=== PATIENT | female | born 1945 | race Caucasian/White ===

== ENCOUNTER 2020-06-04 09:17 | Outpatient (REF) | payer MEDICARE, SELFPAY ==
[2020-06-04 22:02] LABS: TSH 1.12 uIU/mL (0.36-3.74)
== END 2020-06-04 09:37 ==
LOC: NCHCN 09:17
PROVIDERS: Visit Provider Nurse Practitioner Community Health
DX: E03.9 Hypothyroidism, unspecified (principal)
CPT/HCPCS: 84443

== ENCOUNTER 2022-04-15 15:02 | Outpatient (REF) | payer MEDICARE, SELFPAY ==
[2022-04-15 15:26] LABS: Abs Immature Grans 0.05 10^3/uL (0.0-0.06); Absolute Basophil Count 0.03 10^3/uL (0.0-0.2); Absolute Eosinophil Count 0.04 10^3/uL (0.0-0.7); Absolute Lymphocyte Count 1.04 10^3/uL (1.2-3.4); Absolute Neutrophil Count 7.86 10^3/uL (1.2-6.7); Basophils % 0.3; Eosinophils % 0.4; HCT 45.9 % (36.0-46.0); HGB 14.6 g/dL (11.2-15.7); Immature Grans % 0.5; Lymphocytes % 11.2; MCH 28.4 pg (27.0-33.0); MCHC 31.8 % (32.0-36.0); MCV 89 fL (80-95); MPV 14.3 fL (8.0-11.0); Monocytes % 3.2; Neutrophils % 84.4; RBC 5.14 10^6/uL (3.93-5.22); RDW 12.6 % (11.7-14.6); RDW-SD 41.4 fL; WBC 9.32 10^3/uL (4.4-10.8)
[2022-04-15 15:48] LABS: Hemoglobin A1C 6.9 % (<5.7)
[2022-04-15 16:19] LABS: ALT 21 U/L (14-59); AST 22 U/L (15-37); Albumin 4.1 g/dL (3.4-5.0); Alkaline Phosphatase 119 U/L (46-116); BUN 22 mg/dL (7-18); Bilirubin, Total 0.7 mg/dL (0.2-1.0); CREATININE 0.9 mg/dL (0.55-1.02); Calcium 8.4 mg/dL (8.5-10.1); Chloride 103 mmol/L (98-107); Glucose 162 mg/dL (74-106); Potassium 4.3 mmol/L (3.5-5.1); Sodium 139 mmol/L (136-145); TSH 1.43 uIU/mL (0.36-3.74); Total Protein 6.4 g/dL (6.4-8.2); Vitamin B12 139 pg/mL (193-986)
[2022-04-15 19:29] LABS: Diff Comment PLT Morph Reviewed; Platelet Count 35 10^3/uL (130-400); RBC Morphology Normal
== END 2022-04-15 15:03 | disposition home or self-care (01) ==
LOC: NCHCN 15:02
PROVIDERS: Visit Provider Registered Nurse
DX: E03.9 Hypothyroidism, unspecified (principal); E11.9 Type 2 diabetes mellitus without complications; R41.3 Other amnesia; D89.89 Other specified disorders involving the immune mechanism, not elsewhere classified; I10 Essential (primary) hypertension
CPT/HCPCS: 80053; 82043; 82570; 82607; 83036; 84443; 85025

== ENCOUNTER 2023-03-11 21:34 | Outpatient (REF) | payer MEDICARE, SELFPAY ==
--- OUTSIDE RECORDS SUMMARY | 2023-03-11 21:46 | XMS_ITS | CCD ---
Author Name Unknown Address [address] [place] [address] [id number] Organization Unknown Address [address] [place] [address] [id number] Care Team Providers Care Topographical Surveyor Name Role Phone EVANGELINA BAIRD Attending Physician [phone] Vital Signs Unknown or Not Available. Allergies Allergy Code Allergy Type Reaction Status No Known Drug Allergies 0 No known drug allergies Active Procedures Unknown or Not Available. History of Immunizations Unknown or Not Available. Problems Unknown or Not Available. Results Unknown or Not Available. Active Medications Medication Code Dose Units Frequency Route Modificatio n Start Date/Time Keflex 500MG Oral Capsule 804329 1 CAPSULE THREE TIMES A DAY ORAL 05/15/2022 14:27 Prescription Detail TAKE 1 CAPSULE ORAL THREE TIMES A DAY Levothyroxine 100MCG Oral Tablet 575624 100 MCG DAILY ORAL 07/18/2020 13:16 Prescription Detail TAKE 100 MCG ORAL DAILY Lisinopril 10MG Oral Tablet [id number] 10 MILLIGRAMS DAILY ORAL 020 13:16 Prescription Detail TAKE 10 MILLIGRAMS ORAL DAILY Medications Administered During Visit Unknown or Not Available. Encounters Encounter Diagnosis Diagnosis Code Start Date Other amnesia R413 05/25/2022 Social History Smoking Status Code Start Date End Date Never smoker [id number] Patient Decision Aids Unknown or Not Available. Discharge Instructions You were admitted to [facility] on 05/25/2022 14:38 with a principal diagnosis of Other amnesia You were discharged from [facility] on 05/25/2022 14:38 Should you have any questions prior to discharge, please contact a member of your healthcare team. If you have left the hospital and have any questions, please contact your primary care physician. Chief Complaint and Reason For Visit Chief Complaint Date of Onset ASYMPTOMATIC POSTMENOPAUSAL Function Status Unknown or Not Available. Plan of Care Unknown or Not Available. Referral/Transition of Care Unknown or Not Available.
--- OUTSIDE RECORDS SUMMARY | 2023-03-11 21:46 | XMS_ITS | CCD ---
Author Name Unknown Address [address] [place] [address] [id number] Organization Unknown Address [address] [place] [address] [id number] Care Team Providers Care Machine Operator Helper Name Role Phone MARGE ANTONIO Attending Physician [phone] DEVANTE MARCOS Er Physician 5 [phone] KALEE Feliciano Registered Nurse [phone] Vital Signs Vital Sign Value Unit Date/Time Recent/Initial ? BMI (Body Mass Index) 24.2 kg/m^2 05/15/2022 14: 22 Initial VS Weight Measured 141 lbs 05/15/2022 14:22 Ini tial VS Height 64 in 05/15/2022 14:22 Initial VS BSA (Body Surface Area) 1.7 m^2 05/15/2022 1 4:22 Initial VS BP Systolic 162 mmHg 05/15/2022 14:22 Initial VS BP Diastolic 86 mmHg 05/15/2022 14:22 Initia l VS Respiratory Rate 16 bpm 05/15/2022 14:22 In itial VS Heart Rate 72 bpm 05/15/2022 14:22 Initial VS O2 % BldC Oximetry 98 % 05/15/2022 14:22 Initial VS Body Temperature 36.8 degrees 05/15/2022 14:22 In itial VS BP Systolic 149 mmHg 05/15/2022 14:35 Most Re cent VS BP Diastolic 86 mmHg 05/15/2022 14:35 Most R ecent VS Respiratory Rate 18 bpm 05/15/2022 14:[address] Recent VS Heart Rate 63 bpm 05/15/2022 14:35 Most Rec ent VS O2 % BldC Oximetry 98 % 05/15/2022 14:35 Most Recent VS Body Temperature 36.1 degrees 05/15/2022 14:[address] Recent VS Allergies Allergy Code Allergy Type Reaction Status No Known Drug Allergies 0 No known drug allergies Active Procedures Unknown or Not Available. History of Immunizations Unknown or Not Available. Problems Unknown or Not Available. Results Unknown or Not Available. Active Medications Unknown or Not Available. Medications Administered During Visit Unknown or Not Available. Encounters Encounter Diagnosis Diagnosis Code Start Date Cellulitis of right lower limb [id number] 05/15/2022 Social History Smoking Status Code Start Date End Date Never smoker [id number] Patient Decision Aids Unknown or Not Available. Discharge Instructions You were admitted to [facility] on 05/15/2022 13:27 with a principal diagnosis of Cellulitis of right lower limb You were discharged from [facility] on 05/15/2022 14:54 Should you have any questions prior to discharge, please contact a member of your healthcare team. If you have left the hospital and have any questions, please contact your primary care physician. Chief Complaint and Reason For Visit Chief Complaint Date of Onset RIGHT CALF SORE POSSIBLE BITE 05/15/2022 Function Status Unknown or Not Available. Plan of Care Unknown or Not Available. Referral/Transition of Care Unknown or Not Available.
--- OUTSIDE RECORDS SUMMARY | 2023-03-11 21:46 | XMS_ITS | CCD ---
Author Name Unknown Address [address] [place] [address] [id number] Organization Unknown Address [address] [place] [address] [id number] Care Team Providers Care Paster Supervisor Name Role Phone ALEN BALDWIN, JUDY Russ Attending Physician [phone] SUSY MASON Er Physician 1 0 Vital Signs Unknown or Not Available. Allergies Allergy Code Allergy Type Reaction Status No Known Drug Allergies 0 No known drug allergies Active Procedures Unknown or Not Available. History of Immunizations Unknown or Not Available. Problems Unknown or Not Available. Results Unknown or Not Available. Active Medications Medication Code Dose Units Frequency Route Modificatio n Start Date/Time Keflex 500MG Oral Capsule 818184 1 CAPSULE THREE TIMES A DAY ORAL 05/15/2022 14:27 Prescription Detail TAKE 1 CAPSULE ORAL THREE TIMES A DAY Levothyroxine 100MCG Oral Tablet [id number] 100 MCG DAILY ORAL 07/18/2020 13:16 Prescription Detail TAKE 100 MCG ORAL DAILY Lisinopril 10MG Oral Tablet 162841 10 MILLIGRAMS DAILY ORAL 020 13:16 Prescription Detail TAKE 10 MILLIGRAMS ORAL DAILY Medications Administered During Visit Unknown or Not Available. Encounters Encounter Diagnosis Diagnosis Code Start Date Insect bite (nonvenomous), r ight lower leg, initial encounter [id number] 07/24/2021 Social History Smoking Status Code Start Date End Date Never smoker [id number] Patient Decision Aids Unknown or Not Available. Discharge Instructions You were admitted to [facility] on 07/24/2021 19:50 with a principal diagnosis of Insect bite (nonvenomous), right lower leg, initial encounter You were discharged from [facility] on 07/24/2021 21:00 Should you have any questions prior to discharge, please contact a member of your healthcare team. If you have left the hospital and have any questions, please contact your primary care physician. Chief Complaint and Reason For Visit Chief Complaint Date of Onset RIGHT ANKLE BITE Function Status Unknown or Not Available. Plan of Care Unknown or Not Available. Referral/Transition of Care Unknown or Not Available.
[2023-03-11 22:28] LABS: Vitamin D 25 Total 34.8 ng/mL (30-100)
[2023-03-11 22:30] LABS: Magnesium 2.1 mg/dL (1.8-2.4); TSH (W/Ref FT4) 0.98 uIU/mL (0.36-3.74); Vitamin B12 97 pg/mL (193-986)
[2023-03-11 22:34] LABS: Folate > 20.0 ng/mL (8.6-20.0)
== END 2023-03-11 21:35 | disposition home or self-care (01) ==
LOC: NCHCN 21:34
PROVIDERS: Visit Provider Family Medicine
DX: E03.9 Hypothyroidism, unspecified (principal); I10 Essential (primary) hypertension; E11.9 Type 2 diabetes mellitus without complications; F32.9 Major depressive disorder, single episode, unspecified; Z79.899 Other long term (current) drug therapy
CPT/HCPCS: 82306; 82607; 82746; 83735; 84443

== ENCOUNTER 2023-07-26 10:28 | Outpatient (REF) | payer MEDICARE, SELFPAY ==
[2023-07-26 15:54] LABS: Anion Gap 6.2 mmol/L (3-11); BUN 18 mg/dL (7-18); CO2 29.8 mmol/L (21.0-32.0); CREATININE 0.9 mg/dL (0.55-1.02); Calcium 8.7 mg/dL (8.5-10.1); Chloride 103 mmol/L (98-107); Estimated GFR 65.03 (mL/min/1.73m2); Glucose 186 mg/dL (74-106); Potassium 3.9 mmol/L (3.5-5.1); Sodium 139 mmol/L (136-145)
[2023-07-26 18:22] LABS: COMMENT (LAB VIEW ONLY) 105.18 mg/dL; Microalb ug/mg Crea 6.4 ug/mg Cr
== END 2023-07-26 10:29 | disposition home or self-care (01) ==
LOC: NCHCN 10:28
PROVIDERS: PCP Family Medicine; Visit Provider Family Medicine
DX: E11.9 Type 2 diabetes mellitus without complications (principal); I10 Essential (primary) hypertension
CPT/HCPCS: 80048; 82043; 82570

== ENCOUNTER 2024-04-12 12:47 | Outpatient (REF) | payer MEDICARE, SELFPAY ==
[2024-04-12 15:20] LABS: Anion Gap 10.5 mmol/L (3-11); BUN 17 mg/dL (7-18); CO2 26.5 mmol/L (21.0-32.0); CREATININE 0.9 mg/dL (0.55-1.02); Calcium 9.2 mg/dL (8.5-10.1); Chloride 104 mmol/L (98-107); Estimated GFR 64.63 (mL/min/1.73m2); Glucose 134 mg/dL (74-106); Potassium 4.2 mmol/L (3.5-5.1); Sodium 141 mmol/L (136-145)
[2024-04-12 15:26] LABS: Hemoglobin A1C 6.3 % (<5.7)
== END 2024-04-12 12:48 | disposition home or self-care (01) ==
LOC: NCHCN 12:47
PROVIDERS: PCP Family Medicine; Visit Provider Family Medicine
DX: E11.9 Type 2 diabetes mellitus without complications (principal); E03.9 Hypothyroidism, unspecified
CPT/HCPCS: 80048; 83036; 84443

== ENCOUNTER 2024-05-22 15:01 | Outpatient (REF) | payer MEDICARE, SELFPAY ==
[2024-05-22 15:29] LABS: Abs Immature Grans 0.06 10^3/uL (0.0-0.06); Absolute Basophil Count 0.03 10^3/uL (0.0-0.2); Absolute Eosinophil Count 0.05 10^3/uL (0.0-0.7); Absolute Monocyte Count 0.24 10^3/uL (0.1-0.8); Absolute Neutrophil Count 7.45 10^3/uL (1.2-6.7); Basophils % 0.3 %; Eosinophils % 0.6 %; HCT 43.9 % (36.0-46.0); Immature Grans % 0.7 %; Lymphocytes % 9.3 %; MCH 27.6 pg (27.0-33.0); MCHC 31.9 % (32.0-36.0); MCV 87 fL (80-95); Monocytes % 2.8 %; Neutrophils % 86.3 %; RBC 5.07 10^6/uL (3.93-5.22); RDW 12.4 % (11.7-14.6); RDW-SD 39.3 fL; WBC 8.63 10^3/uL (4.4-10.8)
[2024-05-22 16:10] LABS: Platelet Count 44 10^3/uL (130-400)
== END 2024-05-22 15:02 | disposition home or self-care (01) ==
LOC: LBN 15:01
PROVIDERS: PCP Family Medicine; Visit Provider Nurse Practitioner
DX: D69.3 Immune thrombocytopenic purpura (principal); D47.2 Monoclonal gammopathy
CPT/HCPCS: 85025

== ENCOUNTER 2024-07-26 19:18 | Outpatient (REF) | payer MEDICARE, SELFPAY ==
[2024-07-26 17:24] LABS: Abs Immature Grans 0.12 10^3/uL (0.0-0.06); Absolute Basophil Count 0.03 10^3/uL (0.0-0.2); Absolute Lymphocyte Count 0.67 10^3/uL (1.2-3.4); Absolute Neutrophil Count 7.66 10^3/uL (1.2-6.7); Basophils % 0.3 %; HCT 40.9 % (36.0-46.0); HGB 13.1 g/dL (11.2-15.7); Immature Grans % 1.4 %; Lymphocytes % 7.8 %; MCH 27.6 pg (27.0-33.0); MCV 86 fL (80-95); MPV 11.3 fL (8.0-11.0); Monocytes % 1.2 %; Neutrophils % 89.3 %; RBC 4.75 10^6/uL (3.93-5.22); RDW 14.2 % (11.7-14.6); RDW-SD 45.1 fL; WBC 8.58 10^3/uL (4.4-10.8)
[2024-07-26 17:58] LABS: Diff Comment PLT Morph Reviewed; Platelet Count 76 10^3/uL (130-400); RBC Morphology Normal
== END 2024-07-26 19:19 | disposition home or self-care (01) ==
LOC: LBN 19:18
PROVIDERS: PCP Family Medicine; Visit Provider Nurse Practitioner
DX: D69.3 Immune thrombocytopenic purpura (principal)
CPT/HCPCS: 85025

== ENCOUNTER 2024-08-01 02:41 | Outpatient (CLI) | payer MEDICARE, SELFPAY ==
[2024-08-01 10:06] LABS: Abs Immature Grans 0.17 10^3/uL (0.0-0.06); Absolute Basophil Count 0.06 10^3/uL (0.0-0.2); Absolute Eosinophil Count 0.01 10^3/uL (0.0-0.7); Absolute Lymphocyte Count 1.99 10^3/uL (1.2-3.4); Absolute Monocyte Count 0.54 10^3/uL (0.1-0.8); Absolute Neutrophil Count 6.69 10^3/uL (1.2-6.7); Basophils % 0.6 %; Eosinophils % 0.1 %; HGB 13.4 g/dL (11.2-15.7); Immature Grans % 1.8 %; MCH 27.2 pg (27.0-33.0); MCHC 31.9 % (32.0-36.0); MCV 85 fL (80-95); MPV 10.4 fL (8.0-11.0); Monocytes % 5.7 %; Neutrophils % 70.8 %; RBC 4.92 10^6/uL (3.93-5.22); RDW 14.3 % (11.7-14.6); RDW-SD 44.5 fL; WBC 9.46 10^3/uL (4.4-10.8)
[2024-08-01 10:17] LABS: Platelet Count 76 10^3/uL (130-400)
== END 2024-08-01 02:42 | disposition home or self-care (01) ==
LOC: LBO 02:41
PROVIDERS: PCP Family Medicine; Visit Provider Nurse Practitioner
DX: D69.3 Immune thrombocytopenic purpura (principal)
CPT/HCPCS: 36415; 85025

== ENCOUNTER 2024-08-08 03:32 | Outpatient (CLI) | payer MEDICARE, SELFPAY ==
[2024-08-08 10:07] LABS: Abs Immature Grans 0.12 10^3/uL (0.0-0.06); Absolute Basophil Count 0.05 10^3/uL (0.0-0.2); Absolute Eosinophil Count 0.03 10^3/uL (0.0-0.7); Absolute Lymphocyte Count 1.93 10^3/uL (1.2-3.4); Absolute Monocyte Count 0.58 10^3/uL (0.1-0.8); Absolute Neutrophil Count 6.56 10^3/uL (1.2-6.7); Basophils % 0.5 %; Eosinophils % 0.3 %; HCT 46.3 % (36.0-46.0); HGB 14.7 g/dL (11.2-15.7); Immature Grans % 1.3 %; Lymphocytes % 20.8 %; MCH 27.2 pg (27.0-33.0); MCHC 31.7 % (32.0-36.0); MCV 86 fL (80-95); MPV 9.9 fL (8.0-11.0); Monocytes % 6.3 %; Neutrophils % 70.8 %; RDW 14.6 % (11.7-14.6); RDW-SD 45.6 fL; WBC 9.27 10^3/uL (4.4-10.8)
[2024-08-08 10:36] LABS: Diff Comment Diff Reviewed; Platelet Count 72 10^3/uL (130-400); RBC Morphology Normal
== END 2024-08-08 03:33 | disposition home or self-care (01) ==
LOC: LBO 03:32
PROVIDERS: PCP Family Medicine; Visit Provider Nurse Practitioner
DX: D69.3 Immune thrombocytopenic purpura (principal)
CPT/HCPCS: 36415; 85025

== ENCOUNTER 2024-08-15 02:51 | Outpatient (CLI) | payer MEDICARE, SELFPAY ==
[2024-08-15 10:09] LABS: Abs Immature Grans 0.09 10^3/uL (0.0-0.06); Absolute Basophil Count 0.04 10^3/uL (0.0-0.2); Absolute Eosinophil Count 0.03 10^3/uL (0.0-0.7); Absolute Lymphocyte Count 2.37 10^3/uL (1.2-3.4); Absolute Neutrophil Count 5.22 10^3/uL (1.2-6.7); Basophils % 0.5 %; Eosinophils % 0.4 %; HGB 13.6 g/dL (11.2-15.7); Immature Grans % 1.1 %; Lymphocytes % 28.7 %; MCH 27.9 pg (27.0-33.0); MCHC 32.4 % (32.0-36.0); MCV 86 fL (80-95); MPV 11.3 fL (8.0-11.0); Monocytes % 6.1 %; Neutrophils % 63.2 %; RBC 4.88 10^6/uL (3.93-5.22); RDW 14.7 % (11.7-14.6); RDW-SD 46.3 fL; WBC 8.25 10^3/uL (4.4-10.8)
[2024-08-15 10:20] LABS: Platelet Count 66 10^3/uL (130-400)
== END 2024-08-15 02:52 | disposition home or self-care (01) ==
LOC: LBO 02:51
PROVIDERS: PCP Family Medicine; Visit Provider Nurse Practitioner
DX: D69.3 Immune thrombocytopenic purpura (principal)
CPT/HCPCS: 36415; 85025

== ENCOUNTER 2024-08-22 02:25 | Outpatient (CLI) | payer MEDICARE, SELFPAY ==
[2024-08-22 09:54] LABS: Abs Immature Grans 0.04 10^3/uL (0.0-0.06); Absolute Basophil Count 0.03 10^3/uL (0.0-0.2); Absolute Eosinophil Count 0.03 10^3/uL (0.0-0.7); Absolute Lymphocyte Count 1.92 10^3/uL (1.2-3.4); Absolute Monocyte Count 0.42 10^3/uL (0.1-0.8); Absolute Neutrophil Count 4.57 10^3/uL (1.2-6.7); Basophils % 0.4 %; Eosinophils % 0.4 %; HCT 41.5 % (36.0-46.0); HGB 13.2 g/dL (11.2-15.7); Immature Grans % 0.6 %; Lymphocytes % 27.4 %; MCH 27.4 pg (27.0-33.0); MCHC 31.8 % (32.0-36.0); MCV 86 fL (80-95); MPV 11.5 fL (8.0-11.0); Neutrophils % 65.2 %; RBC 4.81 10^6/uL (3.93-5.22); RDW 14.7 % (11.7-14.6); RDW-SD 46.7 fL; WBC 7.01 10^3/uL (4.4-10.8)
[2024-08-22 10:10] LABS: Platelet Count 50 10^3/uL (130-400)
== END 2024-08-22 02:26 | disposition home or self-care (01) ==
LOC: LBO 02:25
PROVIDERS: PCP Family Medicine; Visit Provider Nurse Practitioner
DX: D69.3 Immune thrombocytopenic purpura (principal)
CPT/HCPCS: 36415; 85025

== ENCOUNTER 2024-08-23 15:39 | Outpatient (REF) | payer MEDICARE, SELFPAY ==
[2024-08-23 15:55] LABS: Anion Gap 5.7 mmol/L (3-11); BUN 18 mg/dL (7-18); CO2 28.3 mmol/L (21.0-32.0); CREATININE 0.8 mg/dL (0.55-1.02); Calcium 8.2 mg/dL (8.5-10.1); Chloride 105 mmol/L (98-107); Estimated GFR 74.44 (mL/min/1.73m2); Glucose 152 mg/dL (74-106); Potassium 3.7 mmol/L (3.5-5.1); Sodium 139 mmol/L (136-145)
[2024-08-23 16:24] LABS: TSH (W/Ref FT4) 3.11 uIU/mL (0.36-3.74)
== END 2024-08-23 15:40 | disposition home or self-care (01) ==
LOC: NCHCN 15:39
PROVIDERS: PCP Family Medicine; Visit Provider Family Medicine
DX: E03.9 Hypothyroidism, unspecified (principal); D69.3 Immune thrombocytopenic purpura
CPT/HCPCS: 80048; 84443

== ENCOUNTER 2024-08-29 02:17 | Outpatient (CLI) | payer MEDICARE, SELFPAY ==
[2024-08-29 10:01] LABS: Abs Immature Grans 0.07 10^3/uL (0.0-0.06); Absolute Basophil Count 0.03 10^3/uL (0.0-0.2); Absolute Eosinophil Count 0.04 10^3/uL (0.0-0.7); Absolute Lymphocyte Count 1.79 10^3/uL (1.2-3.4); Absolute Monocyte Count 0.61 10^3/uL (0.1-0.8); Absolute Neutrophil Count 4.44 10^3/uL (1.2-6.7); Basophils % 0.4 %; Eosinophils % 0.6 %; HCT 42.4 % (36.0-46.0); HGB 13.5 g/dL (11.2-15.7); Lymphocytes % 25.6 %; MCH 27.6 pg (27.0-33.0); MCHC 31.8 % (32.0-36.0); MCV 87 fL (80-95); MPV 9.8 fL (8.0-11.0); Monocytes % 8.7 %; Neutrophils % 63.7 %; RBC 4.89 10^6/uL (3.93-5.22); RDW 14.9 % (11.7-14.6); RDW-SD 47.9 fL; WBC 6.98 10^3/uL (4.4-10.8)
[2024-08-29 10:14] LABS: Diff Comment PLT Morph Reviewed; Platelet Count 46 10^3/uL (130-400); RBC Morphology Normal
== END 2024-08-29 02:18 | disposition home or self-care (01) ==
LOC: LBO 02:18
PROVIDERS: PCP Family Medicine; Visit Provider Nurse Practitioner
DX: D69.3 Immune thrombocytopenic purpura (principal)
CPT/HCPCS: 36415; 85025

== ENCOUNTER 2024-09-10 18:33 | Observation (INO) | payer MEDICARE, SELFPAY ==
[2024-09-10 18:37] VITALS: BP 155/88; PULSE 88; RESP 15; TEMP 36.8; O2SAT 97
[2024-09-10 20:34] LABS: Bilirubin Small (Negative); Blood Negative (Negative); Clarity Clear (Clear); Glucose 500 mg/dL (Negative); Ketones Trace mg/dL (Negative); Leukocyte Esterase Negative (Negative); Nitrite Negative (Negative); Specific Gravity >= 1.030 (1.005-1.025); pH 5.5 (5-8)
[2024-09-10 20:36] LABS: Abs Immature Grans 0.18 10^3/uL (0.0-0.06); Absolute Basophil Count 0.04 10^3/uL (0.0-0.2); Absolute Eosinophil Count 0.01 10^3/uL (0.0-0.7); Absolute Monocyte Count 0.46 10^3/uL (0.1-0.8); Absolute Neutrophil Count 6.71 10^3/uL (1.2-6.7); Basophils % 0.4 %; Eosinophils % 0.1 %; HCT 40.1 % (36.0-46.0); HGB 12.9 g/dL (11.2-15.7); Lymphocytes % 16.9 %; MCH 27.9 pg (27.0-33.0); MCHC 32.2 % (32.0-36.0); MCV 87 fL (80-95); MPV 11.1 fL (8.0-11.0); Monocytes % 5.2 %; Neutrophils % 75.4 %; RBC 4.62 10^6/uL (3.93-5.22); RDW 14.6 % (11.7-14.6); RDW-SD 46.5 fL
[2024-09-10 20:46] LABS: *AMPHETAMINES SCREEN URINE Negative (Negative); *BARBITURATES SCREEN URINE Negative (Negative); *BENZODIAZEPINES SCREEN URINE Negative (Negative); Cannabinoids THC Negative (Negative); Cocaine Screen,Urine Negative (Negative); METHADONE URINE SCREEN Negative (Negative); OPIATES URINE SCREEN Negative (Negative); Tricyclic Antidepressants Positive (Negative)
--- NOTE | 2024-09-10 20:47 | W.ED.GENAD ---
Discharge Plan Discharge Details Chief Complaint: PsychEval Primary Care Provider: Coral Borrego ED Provider: Rehana Matamoros Home Meds and New Rx's Prescriptions: No Action cyanocobalamin (vitamin B-12) 1,000 mcg capsule 1,000 mcg PO DAILY doxycycline hyclate 100 mg capsule 100 mg PO BID escitalopram oxalate 10 mg tablet 10 mg PO DAILY escitalopram oxalate 5 mg tablet 5 mg PO DAILY levothyroxine 100 mcg capsule 100 mcg PO DAILY lisinopril 10 mg tablet 10 mg PO DAILY metformin 500 mg tablet 500 mg PO BID metformin 500 mg tablet extended release 24 hr 500 mg PO DAILY acetylcysteine [NAC] 600 mg capsule 600 mg PO BID prednisolone acetate 1 % drops,suspension 1 drp ophthalmic (eye) QID prednisone 10 mg tablet 10 mg PO DAILY prednisone 2.5 mg tablet 2.5 mg PO DAILY quetiapine 25 mg tablet 25 mg PO BID multivitamin,tx-minerals Tablet 1 tab PO DAILY cholecalciferol (vitamin D3) 10 mcg (400 unit) capsule 10 mcg PO DAILY HPI General Mode of arrival: ambulatory. Date/Time Provider Initiated Documentation: 09/10/24 18:54. Limitations to Documentation: no limitations. Information obtained by: patient, family and old records reviewed. HPI Narrative: HPI: This is a an 79-year-old female patient with a past medical history significant for dementia, diabetes, and hypothyroidism presenting for evaluation for mood disturbance. History is primarily obtained from the patient's family members which include a and son at bedside and a daughter, who is the DURABLE POWER OF ADMINISTRATIVE SUPPORT ASSISTANT, via phone. The patient has a history of sundowning, resides at home with the and became quite agitated this evening, with lots of yelling and potential throwing of dishes. The family is concerned that the home is currently an unsafe environment for both the patient and her . The patient had an evaluation at [facility] 1 week ago for suicidal ideation, patient is reported to have left a note stating that she wanted to . The patient states that she feels very frustrated because she is not the same person that she used to be, and endorses a feeling of hopelessness given her situation. Today she is not endorsing any active suicidal ideation and has made no attempts to harm herself prior to arrival at our facility. The patient reports that she is otherwise feeling well, with no reported recent falls, illness, or injuries. The family has been attempting to touch the patient and with outpatient resources, but are lacking clearance and referrals which required them to present to the emergency department today for evaluation. Exam: Gen: Awake and alert, in no apparent distress HEENT: Non-icteric sclera, PERRL Neck: Supple Lungs: No apparent respiratory distress, normal respiratory effort. CV: Appears well perfused, strong distal pulses Abdomen: Non-distended MSK: Moves 4 extremities without apparent limitation in ROM Skin: Visualized skin without rashes, cyanosis. Neuro: Normal Gait, no obvious focal deficits or facial asymmetry. Cranial nerves II through XII intact and symmetrical bilaterally, 5 out of 5 strength. Speaks in full, clear sentences. Psych: Appropriate for situation, currently calm, cooperative, able to participate in evaluation and follow simple commands MDM: This is an 79-year-old female patient presenting for evaluation of mood disturbance. My differential includes but is not limited to primary psychiatric disturbance, certainly considered sequelae of dementia, considered medical abnormalities including hypothyroidism, infection including urinary tract infection, anemia, metabolic derangement, kidney injury, liver disease. The patient has not had any reported ingestions or attempts at overdose (patient has received to 25 mg Seroquel's at home prior to arrival over the course of the day), and has not sustained any trauma to suggest intracranial hemorrhage or other injury. Given that the patient cannot be cleared without a medical clearance examination due to her age and her history of diabetes, we will proceed with laboratory studies to include CBC, CMP, UA, TSH, and urine drug screen. ED Course: I reviewed the patient's laboratory studies, which reveal no leukocytosis, or anemia. She does have a baseline thrombocytopenia which is actually improved from her baseline. No metabolic or electrolyte derangements, slight elevation in her BUN without associated elevation in creatinine, no liver dysfunction. UA is noninfectious, and her UDS is positive only for tricyclics. I note that she is on a prednisone taper, which could certainly be contributing to her symptoms. After medical clearance the patient was moved to zone B, and I signed out care of the patient to the oncoming provider prior to final disposition and evaluation by social work. I did write for her home meds, and she received a dose of Seroquel 25 which is at bedtime medicine for her at home here in the emergency department. She did not require chemical or physical restraint. Remained hemodynamically stable while under my care. Ceci Griffin MD Related Data Home Medications ?Medication ?Instructions ?Recorded ?Confirmed acetylcysteine 600 mg capsule (NAC) 600 mg PO BID 04/30/24 cholecalciferol (vitamin D3) 10 10 mcg PO DAILY 04/30/24 mcg (400 unit) capsule cyanocobalamin (vitamin B-12) 1,000 mcg PO DAILY 04/30/24 1,000 mcg capsule doxycycline hyclate 100 mg capsule 100 mg PO BID 04/30/24 escitalopram oxalate 10 mg tablet 10 mg PO DAILY 04/30/24 escitalopram oxalate 5 mg tablet 5 mg PO DAILY 04/30/24 levothyroxine 100 mcg capsule 100 mcg PO DAILY 04/30/24 lisinopril 10 mg tablet 10 mg PO DAILY 04/30/24 metformin 500 mg tablet 500 mg PO BID 04/30/24 metformin 500 mg tablet,extended 500 mg PO DAILY 04/30/24 release 24 hr multivitamin,tx-minerals 1 tab PO DAILY 04/30/24 prednisolone acetate 1 % eye 1 drp ophthalmic (eye) QID 04/30/24 drops,suspension prednisone 10 mg tablet 10 mg PO DAILY 04/30/24 prednisone 2.5 mg tablet 2.5 mg PO DAILY 04/30/24 quetiapine 25 mg tablet 25 mg PO BID 04/30/24 Allergies Allergy/AdvReac Type Severity Reaction Status Date / Time No Known Allergies Allergy Verified 04/30/24 09:32 General Stated Complaint: PsychEval LIDYA: 2 Course Vital Signs Vital signs: Vital Signs Temperature 36.8 C 09/10/24 18:37 Pulse 88 09/10/24 18:37 Respiratory Rate 15 09/10/24 18:37 Blood Pressure 155/88 H 09/10/24 18:37 Pulse Oximetry 97 09/10/24 18:37 Temperature 36.8 C 09/10/24 18:37 Pulse 88 09/10/24 18:37 Respiratory Rate 15 09/10/24 18:37 Respiratory Effort Normal 09/10/24 20:30 Blood Pressure 155/88 H 09/10/24 18:37 Blood Pressure Position Sitting 09/10/24 18:37 Pulse Oximetry 97 09/10/24 18:37 Oxygen Delivery Method Room Air 09/10/24 18:37 Oxygen Flow Rate 0 09/10/24 18:37 Lab/Test Results Lab/Test Results: Laboratory Tests Range/Units 09/10/24 20:22 Urine Color (Yellow) Yellow Urine Clarity (Clear) Clear Urine pH (5-8) 5.5 Ur Specific He[place] (1.005-1.025) >= 1.030 H Urine Protein (Neg-Trace) mg/dL Trace Urine Ketones (Negative) mg/dL Trace H Urine Blood (Negative) Negative Urine Nitrite (Negative) Negative Urine Bilirubin (Negative) Small H Urine Urobilinogen (Up to 0.2) mg/dL 1.0 H Ur Leukocyte Esterase (Negative) Negative Urine Glucose (Negative) mg/dL 500 H Urine Opiates Screen (Negative) Negative Urine Methadone Screen (Negative) Negative Ur Barbiturates Screen (Negative) Negative Ur Tricyclics Screen (Negative) Positive A Ur Amphetamines Screen (Negative) Negative U Benzodiazepines Scrn (Negative) Negative Urine Cocaine Screen (Negative) Negative Ur THC Screen (Negative) Negative Medical Decision Making Quality:SDOH Health Related Social Needs: No Data to Display [facility] Medical History (Updated 04/20/24 @ 08:10 by Liya Dempsey) Dementia Depressed mood Hx of small bowel obstruction Skin macule Acute skin disorder Suicidal thoughts Hx of adenomatous polyp of colon Retrograde amnesia Osteopenia Dysplasia of cervix GERD (gastroesophageal reflux disease) Essential hypertension Insomnia Anxiety Thrombocytopenia Immunosuppression Monoclonal gammopathy of unknown significance Type 2 diabetes mellitus Hypothyroidism Surgical History (Updated 04/20/24 @ 08:12 by Liya Dempsey) H/O local excision of skin lesion Family History (Updated 04/20/24 @ 08:11 by Liya Dempsey) Mother Diabetes LATE ONSET Father Prostate cancer Social History (Updated 04/20/24 @ 08:11 by Liya Dempsey) Smoking/Tobacco Use Status: Never Smoking risk assessment performed?: Yes Sign Out Sign Out Data: Sign Out Comment: 79-year-old female patient with history of dementia brought in for increasing agitation at home, recent evaluation for suicidal ideation a week ago, concern for safety in the home/caregiver fatigue. Medically cleared, wrote for her home Seroquel and melatonin, awaiting [facility] eval and final dispo Last updated by Ceci Griffin MD at 09/10/24 23:31
[2024-09-10 20:50] LABS: Platelet Count 70 10^3/uL (130-400)
[2024-09-10 21:02] LABS: ALT 15 U/L (14-59); AST 12 U/L (15-37); Albumin 3.5 g/dL (3.4-5.0); Alkaline Phosphatase 95 U/L (46-116); Anion Gap 6.1 mmol/L (3-11); BUN 26 mg/dL (7-18); Bilirubin, Total 0.41 mg/dL (0.2-1.0); CO2 30.9 mmol/L (21.0-32.0); CREATININE 0.9 mg/dL (0.55-1.02); Calcium 8.8 mg/dL (8.5-10.1); Chloride 105 mmol/L (98-107); Estimated GFR 64.63 (mL/min/1.73m2); Glucose 180 mg/dL (74-106); Potassium 4.1 mmol/L (3.5-5.1); Sodium 142 mmol/L (136-145); Total Protein 6.5 g/dL (6.4-8.2)
--- NOTE | 2024-09-10 23:12 | NUR.NOTE ---
Nursing Note: pT family contacts: Edward Ada- son- [phone] Harvey Kaur- daughter- [phone] Adin Ada- - [phone] Cassandra Sanchez- family friend- [phone]
--- NOTE | 2024-09-10 23:38 | ED.PROG_ITS ---
Date of service: 09/10/24 Time of Service: 23:38 Medical Decision Making This patient was signed out to me. Please see previous notes for H&P and initial eval. In brief, 79yo F with dementia presenting with mood disturbance and family reports of suicidal statements, medically cleared (thrombcytopenia at baseline), voluntary, concerns expressed for safety in the home and caregiver fatigue. Awaiting eval by [facility]. [facility] evaluated patient; plan for re-eval in the morning. Overnight no acute events. Will be signed out to oncoming physician, plan remains as above. Quality:[facility] Health Related Social Needs: No Data to Display Sign Out Sign Out Data: Sign Out Comment: 79-year-old female patient with history of dementia brought in for increasing agitation at home, recent evaluation for suicidal ideation a week ago, concern for safety in the home/caregiver fatigue. Medically cleared, wrote for her home Seroquel and melatonin, awaiting [facility] eval and final dispo Last updated by Ceci Griffin MD at 09/10/24 23:31 Discharge Plan Discharge Details Chief Complaint: PsychEval Primary Care Provider: Coral Borrego ED Provider: Rehana Matamoros Home Meds and New Rx's Prescriptions: No Action cyanocobalamin (vitamin B-12) 1,000 mcg capsule 1,000 mcg PO DAILY doxycycline hyclate 100 mg capsule 100 mg PO BID escitalopram oxalate 10 mg tablet 10 mg PO DAILY escitalopram oxalate 5 mg tablet 5 mg PO DAILY levothyroxine 100 mcg capsule 100 mcg PO DAILY lisinopril 10 mg tablet 10 mg PO DAILY metformin 500 mg tablet 500 mg PO BID metformin 500 mg tablet extended release 24 hr 500 mg PO DAILY acetylcysteine [NAC] 600 mg capsule 600 mg PO BID prednisolone acetate 1 % drops,suspension 1 drp ophthalmic (eye) QID prednisone 10 mg tablet 10 mg PO DAILY prednisone 2.5 mg tablet 2.5 mg PO DAILY quetiapine 25 mg tablet 25 mg PO BID multivitamin,tx-minerals Tablet 1 tab PO DAILY cholecalciferol (vitamin D3) 10 mcg (400 unit) capsule 10 mcg PO DAILY
[2024-09-11] MEDS: QUEtiapine 25 MG TAB PO ×4 (00:42→19:22)
[2024-09-11 07:57] VITALS: BP 195/100; PULSE 80; TEMP 36.6; O2SAT 95
--- NOTE | 2024-09-11 07:58 | W.EDPROG ---
Date of service: 09/11/24 Time of Service: 07:58 Medical Decision Making I received signout on this 79-year-old female in the emergency department voluntarily in the setting of reported suicidal thoughts in the past 48 hours. Patient reportedly has a history of dementia and CVA. Will ensure that her med reconciliation is up-to-date and plan on consulting with psychiatry given new onset symptoms. 12:20 PM I spoke with Dr. Zhao from psychiatry who evaluated the patient. He did not feel that the patient represented an acute risk to herself. He recommended consideration of hospitalization versus placement. Will reach out to care management. 1 PM I spoke with Linda Nevarez from [facility]. She requested a physical therapy consult as patient reportedly had had some balance issues. I also ordered a CT head given recent subdural hemorrhage. Linda will reach out to the patient's family. 2:15 PM I completed a repeat CT scan on this patient. She was found to have a right subdural hematoma which reportedly appeared subacute however there were some concerning areas of hyperdensity more consistent with recent hemorrhage. Patient was also found to have a small left frontal subdural hematoma. Will push images to [facility] and consult neurosurgery. 3:24 PM Patient was recently seen at [facility] for subdural. There was a delay in contacting the transfer center at [facility] as their phone number was down. I reached out to [facility] to have the images pushed and for them to assess for chronicity of her subdural. 3:40 PM I spoke with Linda Nevarez from [facility]. She reported that patient would not qualify for short-term rehab given that she required 1 person assist with physical therapy. 4:50 PM [address] Dr. Rendon from neurosurgery at [facility]. He noted that there was a slight change in the patient's CT scan but that he did not feel that she required acute neurosurgical intervention. I reordered her home medications. Will plan on repeating an interval scan in 6 hours. Will reach out to neurosurgery at [facility] if patient has any significant changes on her scan. Will also repeat scan sooner if patient has any clinical status change. Will sign patient out to Dr. Santana Quality:[facility] Health Related Social Needs: No Data to Display Sign Out Sign Out Data: Sign Out Comment: 79-year-old female patient with history of dementia brought in for increasing agitation at home, recent evaluation for suicidal ideation a week ago, concern for safety in the home/caregiver fatigue. Medically cleared, wrote for her home Seroquel and melatonin, awaiting [facility] eval and final dispo Last updated by Ceci Griffin MD at 09/10/24 23:31 Sign Out Comment: Hx dementia, mood changes/agitation at home and suicidal statements to family. Medically cleared. Pending [facility] eval. Last updated by Rehana Matamoros MD at 09/11/24 07:44 Discharge Plan Discharge Details Chief Complaint: PsychEval Primary Care Provider: Coral Borrego ED Provider: Jimmy Travis Home Meds and New Rx's Prescriptions: No Action cyanocobalamin (vitamin B-12) 1,000 mcg capsule 1,000 mcg PO DAILY escitalopram oxalate 5 mg tablet 5 mg PO DAILY prednisone 10 mg tablet 15 mg PO DAILY quetiapine 25 mg tablet 25 mg PO BID Patient Comments: Per daughter, pts giving it to her when he feels it is necessary- family wants to determine which times are most appropriate to get them on a consistent schedule Rx Instructions: Per daughter- give BID and can give 1 extra dose PRN is needed cholecalciferol (vitamin D3) 10 mcg (400 unit) capsule 10 mcg PO DAILY levothyroxine 88 mcg tablet 88 mcg PO DAILY Patient Comments: TAKE 1 TABLET BY MOUTH ONCE DAILY lidocaine 4 % adhesive patch,medicated 1 patch topical DAILY Rx Instructions: to coccyx, may leave on for up to 12 hrs, remove old patch melatonin 10 mg tablet 10 mg PO HS sulfamethoxazole-trimethoprim 400-80 mg tablet 1 tab PO DAILY Patient Comments: TAKE 1 TABLET BY MOUTH THREE TIMES A WEEK MONDAYS, WEDNESDAYS, AND FRIDAYS Rx Instructions: THREE TIMES A WEEK, TUE-TUE-TUE
[2024-09-11] MEDS: Levothyroxine 88 MCG TAB PO (08:58)
[2024-09-11] MEDS: predniSONE 10 MG TAB PO (08:58)
[2024-09-11] MEDS: Pantoprazole 40 MG TABCR PO (08:58)
[2024-09-11] MEDS: Escitalopram 10 MG TAB 5 MG PO (08:59)
[2024-09-11 10:48] LABS: ETHANOL BLOOD < 3.0 mg/dL (<10)
[2024-09-11 11:14] LABS: Salicylate < 2.8 mg/dL (<2.8)
[2024-09-11 11:15] LABS: Acetaminophen < 2 ug/mL (10-30)
--- NOTE | 2024-09-11 12:45 | DI.CT_ITS ---
Exam(s) CT HEAD WO EXAM: CT HEAD WO CLINICAL HISTORY: recent subdural. TECHNIQUE: Imaging Protocol: Axial computed tomography images with coronal and sagittal reformatted images were created and reviewed COMPARISON: CT CT HEAD WO CONTRAST from 05/25/2022 FINDINGS: Ventricles and Extra axial spaces: There is a subdural hematoma along the right convexity. It has a maximum thickness of 1.8 cm. It is mostly isodense to the pinon matter, however there are areas of hy perdensity particularly along the right frontal convexity suggesting some interval hemorrhage. There is a mass effect with effacement of the adjacent sulci in the right frontal and parietal lobe. Ther e is also a right to left midline shift of 5 mm. There is also a small left frontal subdural hematom a present. Hemorrhage: Please see the above section under ventricles and extra-axial spaces. Cerebral parenchyma: There are areas of decreased attenuation in the white matter consistent with chr onic microvascular ischemic disease. No findings to suggest an acute territorial infarct are seen at this time. There is an old lacunar infarct in the left basal ganglia. Midline shift: Please see the above section under ventricles and extra-axial spaces. Brainstem/Cerebellum: Normal. Calvarium: Normal. Visualized Paranasal sinuses/Mastoids: Clear. Soft Tissues: Unremarkable. IMPRESSION: 1. Right subdural hematoma measuring 1.8 cm in maximal thickness. There is effacement of the adjacen t sulci in the right frontal and parietal lobes. There is also a 5 mm right to left midline shift. The hematoma is largely subacute but there are areas of hyper density within the hematoma consistent with more recent hemorrhage. 2. Small left frontal subdural hematoma. RADIATION DOSE DELIVERED: 870.12mGy.cm Total DLP DATA REPOSITORY: All CT scans at this facility are submitted to the National Radiology Data Registry (NRDR) Dose Index Registry (DIR) with the [employer] (ACR). RADIATION OPTIMIZATION: All CT scans at this facility use at least one of these dose optimization te chniques: automated exposure control; mA and/or kV adjustment per patient size (includes targeted exa ms where dose is matched to clinical indication); or iterative reconstruction.
--- NOTE | 2024-09-11 13:29 | IN_ITS ---
PT Notes Visit Reasons: eval for safety Physical Therapy ED Zone B Initial Evaluation Date: 09/11/2024 Referring Doctor: Jimmy Travis MD PT Orders: PT CONSULT: ? balence issues Precautions: Fall. Standard. Activity as tolerated. Patient Profile/Admitting Diagnosis: Estefany is an 79-year-old female with past medical history significant for cognitive impairment, depression, and suicidal ideations admitted to Zone B for acute mood changes and suicidal ideations. Patient was referred to PT to assess safety of mobility performance and for balance assessment. PMHX: Medical History (Updated 04/20/24 @ 08:10 by Liya Dempsey) Dementia Depressed mood Hx of small bowel obstruction Skin macule Acute skin disorder Suicidal thoughts Hx of adenomatous polyp of colon Retrograde amnesia Osteopenia Dysplasia of cervix GERD (gastroesophageal reflux disease) Essential hypertension Insomnia Anxiety Thrombocytopenia Immunosuppression Monoclonal gammopathy of unknown significance Type 2 diabetes mellitus Hypothyroidism Surgical History (Updated 04/20/24 @ 08:12 by Liya Dempsey) H/O local excision of skin lesion Social History/Home Situation: Lives with Bill in a private home with one step to enter and a flight of steps to to the main floor of the house. Modified independent with front- wheeled walker indoors and outdoors. Equipment Owned/DME: 2 FWWs Subjective: Pleasant and cooperative. 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 She shared that her job was to make sure the machine did not produce short shot plastics (poor quality plastics) that they supply to companies like [employer] in the past. No verbalizations of suicidal ideations throughout session. Objective: General Observation: Seated on a recliner. Mental Status: Alert. Knows that the name of the current president starts with letter B. Said that it is the month of August and today is aT. Forgot what she ate for lunch and thinsks she in a facility in [place] in [place]. Pain: None reported Vital Signs: Closely monitored by nursign staff ROM: Right Upper Extremity: Shoulder Flexion WFL. Shoulder abduction WFL. Elbow flexion WFL. Wrist flexion WFL. Functional opening and closing of hand WFL. Left Upper Extremity: Shoulder Flexion WFL. Shoulder abduction WFL. Elbow flexion WFL. Wrist flexion WFL. Functional opening and closing of hand WFL. Right Lower Extremity: Hip flexion WFL. Hip abduction WFL. Knee flexion WFL. Ankle dorsiflexion WFL. Ankle plantarflexion WFL. Left Lower Extremity: Hip flexion WFL. Hip abduction WFL. Knee flexion WFL. Ankle dorsiflexion WFL. Ankle plantarflexion WFL. Strength: Right Upper Extremity: Shoulder flexors 4/5. Shoulder abductors 4/5. Elbow flexors 5/5. Elbow extensors 5/5. Transport Coordinator strong. Left Upper Extremity: Shoulder flexors 4/5. Shoulder abductors 4/5. Elbow flexors 5/5. Elbow extensors 5/5. Transport Coordinator strong. Right Lower Extremity: Hip flexors 4/5. Hip abductors 4/5. Knee flexors 5/5. Knee extensors 4/5. Ankle dorsiflexors 4/5. Ankle plantarflexors 4/5. Left Lower Extremity: Hip flexors 4/5. Hip abductors 4/5. Knee flexors 5/5. Knee extensors 4/5. Ankle dorsiflexors 4/5. Ankle plantarflexors 4/5. Bed Mobility/Transfers: Minimal cueing provided for use of B hands as needed for support, movement sequence, AD management, and posture to reduce fall risk and minimize pain report Sit to stand supervision Stand to sit supervision Gait: 150 feet with stand by assist using front-wheeled walker with minimal verbal cueing needed for directional changes only. No LOB. No SOB. Balance: Static Sitting: Normal Dynamic Sitting: Normal Static Standing: Fair Dynamic Standing: Fair Special Tests: Mobility Limitations Standardized Measure [facility] AM-PAC 6 clicks Basic Mobility Inpatient Short Form: Raw Score: 24 CMS Score: 0% deficit 4-stage Balance Test: Feet together 10 seconds Semi-tandem 10 seconds Full tandem <10 seconds One-legged stance <10 seconds Informed Consent/Education: Patient was instructed in purpose of PT consult. Assessment: Able to follow dual step commands/requests during mobility assessment. Patient requires the use of front-wheeled walker for all mobility ADL performance and stand by assist of another to maximize independence and reduce fall risk. No verbalizations of suicidal ideations during PT eval. Patient presents with clinical signs and symptoms consistent with current/admitting diagnoses that have resulted to mobility limitations, gait instability, generalized weakness, and overall ADL decline as demonstrated by the following impairment level findings: 1. Impaired standing balance 2. Impaired activity tolerance 3. Impaired safety awareness Impairments are contributing to the following functional limitations: 1. Difficulty with ambulation without assistive device 2. Increased completion time for mobility ADL performance 3. Increased risk for falls 4. Difficulty with managing steps alone safely Patient is assessed as a 96881 moderate complexity based on the following: History: 79-year-old female with past medical history as indicated above Examination: Demonstrable impairment in strength, balance, and mobility level with underlying impairments and functional limitations as exhibited above Presentation: Evolving Decision Makin moderate complexity Goals: Goals X1 week 1. Supine-Sit independent 2. Sit-Supine independent 3. Sit-Stand independent 4. Stand-Sit independent with FWW 5. Bed-Chair independent with FWW 6. Chair-Bed independent with FWW 7. Independent gait on level surface with use of FWW for at least 300 feet without report of pain nor dyspnea 8. Independent stair negotiation while holding onto B rails for at least 12 steps without report of pain nor dyspnea 9. Independent with home exercise program 10. Good static and dynamic standing balance/tolerance Plan of Care/Treatment Plan: 1-2x/day, 7 days/week x 1 week. Plan of care has been reviewed with the INSIDE WIREMAN providing the service under Physical Therapy direction. Initiate Physical Therapy intervention for pain management as needed, strengthening, bed mobility, transfers, gait, stairs, balance training, and use of assistive device. DISCHARGE RECOMMENDATIONS: [] Home with no services [] [X] Home with services. Patient will benefit from home health PT services in order to progress mobility level using front-wheeled walker, assess home safety, identify additional equipment needs, and establish a functional maintenance program that will increase ability of patient to remain at home. [] Home with outpatient PT [] [] SNF for continued rehabilitation [] [] [facility] [] [] SNF versus LTC based on ability to participate and progress [] TREATMENT CODE/TIME: 90285 x 20 minutes for 1 unit, 58795 x 24 minutes for 2 units (13:29-!4:13). Thank you for the opportunity to participate in the care of this patient. Jo Russell PT, DPT, CLT [facility] [place], [place]
[2024-09-11 14:20] VITALS: BP 132/78; PULSE 72; RESP 15; O2SAT 98
--- NOTE | 2024-09-11 17:36 | CMPROGNOTE_ITS ---
Date of service: 09/11/24 Time of Service: 11:00 Care Management Progress Note Progress Note Text Progress Note Text: CM was asked to see patient and assess for possible placement. Estefany has dementia and her has been caring for her at home. They had private caregivers to assist with her care but her fired them all. A referral was sent to [facility] and [facility] at the family's request. CM had several conversations with the daughter Harvey who has POA if her father is unable to make decisions. Harvey stated that she would like her mother to go to [facility] after a period of stabilization at a geriatric psychiatric facility. There is no current medical reason for admission. Although Estefany is ACO attributed, she has no skilled need for rehab and no payer source for level 2. The ED provider has decided to keep Estefany in the ED overnight and hopefully a bed offer will be received tomorrow from [facility] or [facility].
--- NOTE | 2024-09-11 19:22 | NUR.NOTE ---
Nursing Note: PT GIVEN ORDERED 1999 seroquel 25 mg and PRN 25mg seroquel pt is alert and calm/appropriate w/ family at bedside. pt has [address] CT scan ordered, meds given to help with increased anxiety r/t to scan
--- NOTE | 2024-09-11 19:45 | DI.CT_ITS ---
Exam(s) CT HEAD WO EXAM: CT HEAD WO CLINICAL HISTORY: Subdural. TECHNIQUE: Imaging Protocol: Axial computed tomography images with coronal and sagittal reformatted images were created and reviewed COMPARISON: CT CT HEAD WO CONTRAST from 07/06/[address] HEAD WO CONTRAST from 08/13/[address] HEAD WO CONTRAST from 08/31/[address] HEAD WO from 09/11/2024 FINDINGS: Ventricles and Extra axial spaces: There is again seen a right subdural hematoma measuring 1.8 cm in thickness. This is unchanged compared to the prior examination. The collection is predominantly iso dense but again there are areas of hyperdensity consistent with acute hemorrhagic contents. There is effacement of the adjacent sulci in the right frontal parietal lobe. There is again seen a right to left midline shift of 5 mm which is unchanged from the examination from earlier in the day. There i s also again seen a small left frontal subdural hematoma which is stable. Hemorrhage: Please see the section under ventricles and extra-axial spaces. Cerebral parenchyma: There are areas of decreased attenuation in the white matter consistent with chr onic microvascular ischemic disease. There is a right basal gangliar old lacunar infarct. No acute territorial infarct is seen. Midline shift: Stable right to left midline shift of 5 mm is seen. Brainstem/Cerebellum: Normal. Calvarium: Normal. Visualized Paranasal sinuses/Mastoids: Clear. Soft Tissues: Unremarkable. IMPRESSION: 1. Stable size and appearance of the right sided subdural hematoma. Stable thickness of 1.8 cm. Sta ble right to left midline shift of 5 mm. 2. Stable small left subfrontal subdural hematoma. RADIATION DOSE DELIVERED: 839.5mGy.cm Total DLP DATA REPOSITORY: All CT scans at this facility are submitted to the National Radiology Data Registry (NRDR) Dose Index Registry (DIR) with the [employer] (ACR). RADIATION OPTIMIZATION: All CT scans at this facility use at least one of these dose optimization te chniques: automated exposure control; mA and/or kV adjustment per patient size (includes targeted exa ms where dose is matched to clinical indication); or iterative reconstruction.
--- NOTE | 2024-09-11 20:12 | DI.VRAD_ITS ---
Addendum created by Efra Prado MD on 09/11/2024 8:37:56 PM EDT: This case was discussed personally with Dr. Anderson at 8:37 PM EDT on 09/11/2024. Initial report created on 09/11/2024 8:11:47 PM EDT: PROCEDURE INFORMATION: Exam: CT Head Without Contrast Exam date and time: 09/11/2024 7:42 PM Age: 79 years old Clinical indication: Other: Subdural TECHNIQUE: Imaging protocol: Computed tomography of the head without contrast. COMPARISON: CT HEAD WO 09/11/2024 1:14 PM FINDINGS: Brain: There is redemonstration of a large right-sided subdural hematoma centered over the right frontal lobe with a maximum thickness of 1.8 cm on image 85 of series 2, 1.7 cm on the comparison exam. The collection is largely isoattenuating although there are regions of acute hemorrhage including posterior layering of acute hemorrhage. There is gross mass effect with global effacement of the right-sided cortical sulci, distortion of the ventricular system, partial effacement of the right lateral ventricle, and leftward deviation of the midline measuring 5 mm at the level of the septum pellucidum as seen on the prior exam. There is a small left-sided subdural hematoma anterior to the left frontal pole measuring 4 mm maximum thickness on image 52 of series 2, 5 mm maximum thickness on the recent comparison exam from 1:15 p.m. September 11, 2024. No additional acute intracranial hemorrhage is seen. The pinon-white matter differentiation appears grossly preserved. There is global parenchymal volume loss. There is a 5 mm x 4 mm interhemispheric lipoma on image 77 of series 2. Cerebral ventricles: There is gross distortion of the ventricular system and partial effacement of the right lateral ventricle from right-sided mass effect Paranasal sinuses: The visualized paranasal sinuses appear well-aerated. Mastoid air cells: The visualized mastoid air cells appear well aerated. Auditory system: The middle ear cavities appear clear. Soft tissue density material within the left external auditory canal probably represents cerumen; however, direct inspection is recommended for definitive evaluation. Orbital cavities: The globes and intraorbital structures appear grossly intact. Bones: The bony calvarium appears intact. No depressed skull fracture is seen. There is circumferential calvarial thickening, nonspecific. Soft tissues: No significant scalp lesion is seen. Vasculature: There is atherosclerotic calcification within the intracranial portion of the internal carotid arteries bilaterally. IMPRESSION: 1. Redemonstration of a large heterogeneous right-sided subdural hematoma with acute hemorrhage into an isodense subdural collection centered over the right frontal lobe with a maximum thickness of 1.8 cm on image 85 of series 2, 1.7 cm on the comparison exam. Continued follow-up is recommended. 2. Gross mass effect with global effacement of the right-sided cortical sulci, distortion of the ventricular system, partial effacement of the right lateral ventricle, and leftward deviation of the midline measuring 5 mm at the level of the septum pellucidum as seen on the prior exam. 3. Small intermediate density left-sided subdural hematoma anterior to the left frontal pole measuring 4 mm maximum thickness on image 52 of series 2, 5 mm maximum thickness on the recent comparison exam from 1:15 p.m. September 11, 2024. Dictated and Authenticated by: Efra Prado MD. Ordering:REDD Marquez MD
[2024-09-11] MEDS: Melatonin 3 MG TAB 9 MG PO (22:11)
--- NOTE | 2024-09-11 23:07 | W.PM.HP.N ---
Date of service: 09/11/24 Time of Service: 23:08 Assessment and Plan Assessment and plan (1) Subdural hematoma: Start date: 09/11/24 Status: Acute Assessment and plan: This is an 79-year-old lady with recent falls and worsening dementia with family not able to safely care for patient at home. She lives with her . Acute mentioned that she and her live each other and have the nurses they were doing years in high school. Her and daughter. Be supportive but are unable to safely monitor the patient with falls and sustaining subdural was in a week ago with recurrent falls and new bleeds with mass effect and new hemorrhage though no neurosurgical intervention warranted. Larger subdurals on the right frontal area with a smaller subdural on the left. Patient does have most likely advanced vascular dementia and is not on medical therapy. Her behavioral abnormalities are a problem. She did have some suicidal thoughts in the recent past and was evaluated for possible psychiatric inpatient care though now is awaiting appropriate placement to penitentiary appropriate for her behavior and medical problems. Repeat CT imaging did not reveal any changes in her acute on subacute subdural hematoma and care management is working with family on placement. If she has worsening neurological symptoms or recurrent falls she would need to be reimaged and [facility] neurosurgery will need to be reengaged. She is a full code at this time just need to be reevaluated with palliative care. Prognosis is poor. (2) Dementia: Assessment and plan: Advanced with no specific medical therapy most likely vascular in nature with volume loss on CT scan of the brain. Did not appear to have strokes on CT scan. Consider behavior modification with appropriate monitoring and dependence but also medical therapy may be considered. Patient is pending placement to a penitentiary not able to safely be cared for by her at this time. Qualifiers: Dementia behavioral or psychological symptom: with psychotic disturbance Dementia severity: severe Dementia type: vascular dementia Qualified Code(s): F01.C2 - Vascular dementia, severe, with psychotic disturbance (3) Suicidal thoughts: Assessment and plan: Patient may have some depression but this does not appear to be an active problem. She has been monitored and evaluated by periodic psychiatry. (4) Thrombocytopenia: Assessment and plan: Patient is chronically on prednisone with stable platelet count just below 70. This may have contributed to her subdural hematoma with the falls. Monitor lab and follow-up hematology as scheduled. (5) Type 2 diabetes mellitus: Assessment and plan: Patient is not on medical therapy with glucoses measured below 200 on most past labs. Monitor clinically on regular diet with patient having limits to nutrition with her dementia and most likely not able to follow a strict diabetic diet. Qualifiers: Diabetes mellitus joint terminal attack controller insulin use: without joint terminal attack controller use Diabetes mellitus complication status: without complication Qualified Code(s): E11.9 - Type 2 diabetes mellitus without complications (6) Hypothyroidism: Assessment and plan: TSH is normal we will continue outpatient supplement. Follow-up lab routinely with PCP. Qualifiers: Hypothyroidism type: acquired Qualified Code(s): E03.9 - Hypothyroidism, unspecified History of Present Illness History of Present Illness Chief Complaint: Increasing confusion with dementia, falls with subacute subdural Narrative: This is an 79-year-old female patient who has been in the ED for evaluation for placement and safety having advanced dementia and not able to be with her and daughter at home. She lives with her whom she has been since being juniors in high school and her daughter is involved in patient care but not living with her according to the patient. She has had a known fall tripping down some stairs in the recent past and is on chronic prednisone for thrombocytopenia which is stable with a platelet count just under 70. It was eventually evaluated at [facility] for large but stable subdural hematoma over her right frontal area and a smaller subdural hematoma over her left frontal area with some effacement of the right lateral ventricle and left with deviation of the midline measuring 5 mm at the level of the septum pellucidum. With the patient having escalating behavior recently she was evaluated for suicidal ideation at another institution's ED with psychiatry just prior to presenting to this ED for evaluation for safety with decompensated dementia. Because of her change in status she had a repeat CT which did show slight enlargement of her chronic subdural but this was not significant for neurosurgical intervention according to [facility]. Repeat CT of the head 6 hours after the first was stable and patient will now be admitted to observation requiring adjustment of medical therapy. The patient is intermittently becoming violent and a danger to herself with high risk for refall and poor physical harm to the caring staff. She did receive Seroquel orally and melatonin which was a plan for home treatment and the patient intermittently is responsive to this therapy. On the night of admission the patient was not responding to Seroquel as well though this could be dosed upward with melatonin. She will be admitted for continued adjustment of medical therapy with one-on-one care until care management can decide on care plan with family. Long-term she will need placement to at least a level 2 facility for ongoing supervision and care having failed home care with family even with support. She is a full code at this time unless family has a COLST form at home which is not available at this admission. Palliative care should be involved with this patient. She may benefit from geriatric neuropsychiatry evaluation prior to permanent placement. Review of Systems Narrative: 13 point review of systems generally not obtainable with patient's confused state. Family is not available. PFSH All Active Problems (Updated 09/12/24 @ 06:06 by Jona Simpson) Subdural hematoma (Acute) Medical History Dementia Depressed mood Hx of small bowel obstruction Skin macule Acute skin disorder Suicidal thoughts Hx of adenomatous polyp of colon Retrograde amnesia Osteopenia Dysplasia of cervix GERD (gastroesophageal reflux disease) Essential hypertension Insomnia Anxiety Thrombocytopenia Immunosuppression Monoclonal gammopathy of unknown significance Type 2 diabetes mellitus Hypothyroidism Surgical History H/O local excision of skin lesion Family History Mother Diabetes LATE ONSET Father Prostate cancer Social History Smoking/Tobacco Use Status: Never Smoking risk assessment performed?: Yes Housing: house Meds Allergies and Home Medications Allergies Allergy/AdvReac Type Severity Reaction Status Date / Time No Known Allergies Allergy Verified 04/30/24 09:32 Home Medications ?Medication ?Instructions ?Recorded ?Confirmed ?Type cholecalciferol (vitamin D3) 10 10 mcg PO DAILY 04/30/24 09/11/24 History mcg (400 unit) capsule cyanocobalamin (vitamin B-12) 1,000 mcg PO DAILY 04/30/24 09/11/24 History 1,000 mcg capsule escitalopram oxalate 5 mg tablet 5 mg PO DAILY 04/30/24 09/11/24 History prednisone 10 mg tablet 15 mg PO DAILY 04/30/24 09/11/24 History quetiapine 25 mg tablet 25 mg PO BID 04/30/24 09/11/24 History levothyroxine 88 mcg tablet 88 mcg PO DAILY 09/11/24 09/11/24 History lidocaine 4 % topical patch 1 patch topical DAILY 09/11/24 09/11/24 History melatonin 10 mg tablet 10 mg PO HS 09/11/24 09/11/24 History sulfamethoxazole 400 1 tab PO DAILY 09/11/24 09/11/24 History mg-trimethoprim 80 mg tablet Exam Narrative Exam Narrative: General: Patient is sitting at her bedside but a hard of hearing and having pressured speech with wandering conversation. She is redirectable in conversation but is mostly upset slightly agitated that her family is with her. He does give a history of falling and at times appears to be very specific. She is attended by a sitter. She is thin, darkly tanned over most of the sun exposed areas with chronic skin changes and speaking clearly though slightly pressured and interrupted at times with tangential conversations. HEENT: Normocephalic, atraumatic with no evidence of bruising over the forehead, eyes with pupils equal and reactive to light symmetrically, extraocular movement intact and sclera anicteric. Oropharynx with slightly dry mucosa and fair dentition. Neck: Supple without JVD. Back: Kyphotic over the upper thoracic region without CVA tenderness. Lungs: Fair aeration and clear to auscultation without focalizing rales or rhonchi. Normal expiratory phase and no expiratory wheeze. Vesicular breath sound diffusely. Breast: Exam deferred. Heart: Regular rate and rhythm with no murmurs gallops appreciated. Abdomen: Scaphoid contour, soft and nontender to palpation with no palpable hepatosplenomegaly. Bowel sounds positive all quadrants. Genitalia/rectal: Exam deferred. Skin: Tanned and was exposed areas as mentioned with rough texture and chronic actinic changes. No obvious suspicious lesions. No bruising noted. None sun-exposed areas have normal color, warm and dry. Extremities: No clubbing, cyanosis or pitting edema. Neuro: Cranial nerves II through XII intact, no focalizing motor deficits. No tremor. DTRs does not get flexible and no Babinski. Coordination was not tested with patient have a walker and not cooperative. Psych: Slightly agitated affect with pressured speech and wandering conversation. No abnormal thought processes manifested as a slight paranoia of her family abandoning her and being against her. Short-term memory with severe deficit and long-term memory were intact. Results Imaging Imaging Studies: Exam: CT Head Without Contrast Exam date and time: 09/11/2024 7:42 PM Age: 79 years old Clinical indication: Other: Subdural TECHNIQUE: Imaging protocol: Computed tomography of the head without contrast. COMPARISON: CT HEAD WO 09/11/2024 1:14 PM FINDINGS: Brain: There is redemonstration of a large right-sided subdural hematoma centered over the right frontal lobe with a maximum thickness of 1.8 cm on image 85 of series 2, 1.7 cm on the comparison exam. The collection is largely isoattenuating although there are regions of acute hemorrhage including posterior layering of acute hemorrhage. There is gross mass effect with global effacement of the right-sided cortical sulci, distortion of the ventricular system, partial effacement of the right lateral ventricle, and leftward deviation of the midline measuring 5 mm at the level of the septum pellucidum as seen on the prior exam. There is a small left-sided subdural hematoma anterior to the left frontal pole measuring 4 mm maximum thickness on image 52 of series 2, 5 mm maximum thickness on the recent comparison exam from 1:15 p.m. September 11, 2024. No additional acute intracranial hemorrhage is seen. The pinon-white matter differentiation appears grossly preserved. There is global parenchymal volume loss. There is a 5 mm x 4 mm interhemispheric lipoma on image 77 of series 2. Cerebral ventricles: There is gross distortion of the ventricular system and partial effacement of the right lateral ventricle from right-sided mass effect Paranasal sinuses: The visualized paranasal sinuses appear well-aerated. Mastoid air cells: The visualized mastoid air cells appear well aerated. Auditory system: The middle ear cavities appear clear. Soft tissue density material within the left external auditory canal probably represents cerumen; however, direct inspection is recommended for definitive evaluation. Orbital cavities: The globes and intraorbital structures appear grossly intact. Bones: The bony calvarium appears intact. No depressed skull fracture is seen. There is circumferential calvarial thickening, nonspecific. Soft tissues: No significant scalp lesion is seen. Vasculature: There is atherosclerotic calcification within the intracranial portion of the internal carotid arteries bilaterally. IMPRESSION: 1. Redemonstration of a large heterogeneous right-sided subdural hematoma with acute hemorrhage into an isodense subdural collection centered over the right frontal lobe with a maximum thickness of 1.8 cm on image 85 of series 2, 1.7 cm on the comparison exam. Continued follow-up is recommended. 2. Gross mass effect with global effacement of the right-sided cortical sulci, distortion of the ventricular system, partial effacement of the right lateral ventricle, and leftward deviation of the midline measuring 5 mm at the level of the septum pellucidum as seen on the prior exam. 3. Small intermediate density left-sided subdural hematoma anterior to the left frontal pole measuring 4 mm maximum thickness on image 52 of series 2, 5 mm maximum thickness on the recent comparison exam from 1:15 p.m. September 11, 2024. EXAM: CT HEAD WO Exam date and time: 09/11/24 1346 CLINICAL HISTORY: recent subdural. TECHNIQUE: Imaging Protocol: Axial computed tomography images with coronal and sagittal reformatted images were created and reviewed COMPARISON: CT CT HEAD WO CONTRAST from 05/25/2022 FINDINGS: Overall ventricles and Extra axial spaces: There is a subdural hematoma along the right convexity. It has a maximum thickness of 1.8 cm. It is mostly isodense to the pinon matter, however there are areas of hyperdensity particularly along the right frontal convexity suggesting some interval hemorrhage. There is a mass effect with effacement of the adjacent sulci in the right frontal and parietal lobe. There is also a right to left midline shift of 5 mm. There is also a small left frontal subdural hematoma present. Hemorrhage: Please see the above section under ventricles and extra-axial spaces. Cerebral parenchyma: There are areas of decreased attenuation in the white matter consistent with chronic microvascular ischemic disease. No findings to suggest an acute territorial infarct are seen at this time. There is an old lacunar infarct in the left basal ganglia. Midline shift: Please see the above section under ventricles and extra-axial spaces. Brainstem/Cerebellum: Normal. Calvarium: Normal. Visualized Paranasal sinuses/Mastoids: Clear. Soft Tissues: Unremarkable. IMPRESSION: 1. Right subdural hematoma measuring 1.8 cm in maximal thickness. There is effacement of the adjacent sulci in the right frontal and parietal lobes. There is also a 5 mm right to left midline shift. The hematoma is largely subacute but there are areas of hyper density within the hematoma consistent with more recent hemorrhage. 2. Small left frontal subdural hematoma. Labs 09/10/24 20:30 09/10/24 20:30 Labs: Laboratory Results - last 24 hr 09/11/24 10:25 Salicylates < 2.8 Acetaminophen < 2 Ethyl Alcohol < 3.0 Last Vital Signs Temp 36.6 C 09/11/24 07:57 Pulse 72 09/11/24 14:20 Resp 15 09/11/24 14:20 BP 132/78 09/11/24 14:20 Pulse Ox 98 09/11/24 14:20 Time Spent Time spent with Patient: >75 minutes Time was spent: preparing to see the patient(eg.review tests), obtaining and/or reviewing separately otained hiistory, ordering medications,tests, procedures, indepentently interpreting results, counseling the patient and care coordination
--- NOTE | 2024-09-11 23:42 | W.EDPROG ---
Date of service: 09/11/24 Time of Service: 23:42 Medical Decision Making Intermittently mildly agitated however redirectable to room. CT repeat imaging showing stable subdural. No neurologic deterioration. Hemodynamically stable. Will admit for further placement assessment by care management PT OT. Quality:SDOH Health Related Social Needs: No Data to Display Sign Out Sign Out Data: Sign Out Comment: 79-year-old female patient with history of dementia brought in for increasing agitation at home, recent evaluation for suicidal ideation a week ago, concern for safety in the home/caregiver fatigue. Medically cleared, wrote for her home Seroquel and melatonin, awaiting [facility] eval and final dispo Last updated by Ceci Griffin MD at 09/10/24 23:31 Sign Out Comment: Hx dementia, mood changes/agitation at home and suicidal statements to family. Medically cleared. Pending [facility] eval. 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 Acute on chronic subdural for. Follow-up: 7:[address] Follow-up with [facility] for any acute changes on CT head If patient does not require tertiary care transfer overnight she will be dispositioned during the day on 09/12/2024. Care management is already involved. Home medications are ordered. Last updated by Jimmy Travis MD at 09/11/24 17:08 Discharge Plan Disposition Patient Disposition: Admit to [facility] Condition: Stable Discharge Details Chief Complaint: PsychEval Clinical Impression: Subdural hematoma Primary Care Provider: Coral Borrego ED Provider: Jose Anderson Home Meds and New Rx's Prescriptions: No Action cyanocobalamin (vitamin B-12) 1,000 mcg capsule 1,000 mcg PO DAILY escitalopram oxalate 5 mg tablet 5 mg PO DAILY prednisone 10 mg tablet 15 mg PO DAILY quetiapine 25 mg tablet 25 mg PO BID Patient Comments: Per daughter, pts giving it to her when he feels it is necessary- family wants to determine which times are most appropriate to get them on a consistent schedule Rx Instructions: Per daughter- give BID and can give 1 extra dose PRN is needed cholecalciferol (vitamin D3) 10 mcg (400 unit) capsule 10 mcg PO DAILY levothyroxine 88 mcg tablet 88 mcg PO DAILY Patient Comments: TAKE 1 TABLET BY MOUTH ONCE DAILY lidocaine 4 % adhesive patch,medicated 1 patch topical DAILY Rx Instructions: to coccyx, may leave on for up to 12 hrs, remove old patch melatonin 10 mg tablet 10 mg PO HS sulfamethoxazole-trimethoprim 400-80 mg tablet 1 tab PO DAILY Patient Comments: TAKE 1 TABLET BY MOUTH THREE TIMES A WEEK MONDAYS, WEDNESDAYS, AND FRIDAYS Rx Instructions: THREE TIMES A WEEK, TUE-TUE-TUE
[2024-09-12 01:00] VITALS: BP 151/98; PULSE 83; RESP 16; TEMP 36.7; O2SAT 98
[2024-09-12 01:07] VITALS: BP 151/98; PULSE 83; RESP 16; TEMP 36.7; O2SAT 97
--- NOTE | 2024-09-12 01:47 | W.PC.ACHO ---
Registration Status: Primary Language: Preferred Language: ED Information & Data Chief Complaint PsychEval 09/10/24 20:47 Triage Note PT reports feeling 09/10/24 18:37 inadequate and frustrated about new and persistent stressors in her life. Denies SI. Family reports that she made multiple statements regarding suicidal thoughts in the past 48 hours. Family states the PT is struggling with dementia after a stroke. Medical / Surgical History (Last Reviewed 09/11/24 @ 23:11 by Jona Simpson) Dementia Depressed mood Hx of small bowel obstruction Skin macule Acute skin disorder Suicidal thoughts Hx of adenomatous polyp of colon Retrograde amnesia Osteopenia Dysplasia of cervix GERD (gastroesophageal reflux disease) Essential hypertension Insomnia Anxiety Thrombocytopenia Immunosuppression Monoclonal gammopathy of unknown significance Type 2 diabetes mellitus Hypothyroidism (Last Reviewed 09/11/24 @ 23:11 by Jona Simpson) H/O local excision of skin lesion Most Recent Vital Signs Temperature 36.7 C 09/12/24 01:07 Temperature Source Tympanic 09/11/24 07:57 Pulse 83 09/12/24 01:07 Pulse Rhythm Regular 09/12/24 01:07 Respiratory Rate 16 09/12/24 01:07 Respiratory Effort Normal, Non-Labored 09/12/24 01:07 Respiratory Depth Normal 09/12/24 01:07 Respiratory Pattern Normal 09/12/24 01:07 Blood Pressure 151/98 H 09/12/24 01:07 Blood Pressure Position Sitting 09/10/24 18:37 Pulse Oximetry 97 09/12/24 01:07 Oxygen Delivery Method Room Air 09/12/24 01:07 Oxygen Flow Rate 0 09/12/24 01:07 Pain Level 0 09/12/24 01:07 Allergies No Known Allergies Allergy (Verified 04/30/24 09:32) Active Medications Generic Name Dose Route Start Last Admin Trade Name Freq PRN Reason Stop Dose Admin Melatonin 9 mg 09/11/24 20:00 09/11/24 22:11 Melatonin 3 Mg Tab PO 9 mg HS DEDE Administration Quetiapine Fumarate 25 mg 09/11/24 20:00 09/11/24 19:22 Quetiapine 25 Mg Tab PO 25 mg BID DEDE Administration Quetiapine Fumarate 25 mg 09/11/24 16:43 09/11/24 19:22 Quetiapine 25 Mg Tab PO 25 mg DAILY PRN PRN Administration Agitation Diagnostics 09/12/24 09/11/24 Range/Units 05:35 10:25 WBC Pending RBC Pending Hgb Pending Hct Pending MCV Pending MCH Pending MCHC Pending RDW Pending Plt Count Pending MPV Pending Sodium Pending Potassium Pending Chloride Pending Carbon Dioxide Pending Anion Gap Pending BUN Pending Creatinine Pending Est GFR (CKD-EPI 2020) Pending Glucose Pending Calcium Pending Magnesium Pending Total Bilirubin Pending AST Pending ALT Pending Alkaline Phosphatase Pending Total Protein Pending Albumin Pending Salicylates < 2.8 (<2.8) mg/dL Acetaminophen < 2 (10-30) ug/mL Ethyl Alcohol < 3.0 (<10) mg/dL Intake and Output - 24 Hour Total 09/10/24 18:33 thru 09/12/24 01:07 Intake Total 200 Balance 200 Weight 51.3 kg Intake: Oral 200 Falls Risk Assessment History of Falls No History 09/12/24 01:07 Contributing Factors Confusion 09/12/24 01:07 Ambulatory Aids Uses ambulatory device 09/12/24 01:07 Tubes/Lines None 09/12/24 01:07 Gait Evaluation No gait disturbance 09/12/24 01:07 Cognition Cognitive impairment 09/12/24 01:07 Fall Total Score 33 09/12/24 01:07 Level of Risk Moderate Risk 09/12/24 01:07 Problems (Last Reviewed 09/11/24 @ 23:11 by Jona Simpson) Subdural hematoma (Acute) Notes 09/11/24 19:22 Nursing Notes by Viviana aMn Nursing Note: PT GIVEN ORDERED 2000 seroquel 25 mg and PRN 25mg seroquel pt is alert and calm/appropriate w/ family at bedside. pt has 194 CT scan ordered, meds given to help with increased anxiety r/t to scan Initialized on 09/11/24 19:22 - END OF NOTE 09/10/24 23:12 Nursing Notes by Paola Dunn Nursing Note: pT family contacts: Edward Caballero- son- [phone] Harvey Kaur- daughter- [phone] Adin Caballero- - [phone] Cassandra Sanchez- family friend- [phone] Initialized on 09/10/24 23:12 - END OF NOTE v v v v v v v v v Sending and/or Receiving Nurses: Please use comment section below to note any information pertinent to the patient hand-off not included above. Information / Comments: pt is a+ox1, hr reg, ls clear, continent, no IV access. being admitted for observation. has recieved 9mg melatonin, 50mg seroquel. Report received from: LEROY Jalloh RN
--- NOTE | 2024-09-12 02:06 | NUR.NOTE ---
Patient states her reassurance isn't there due to her fall and with trying to make sure the pathway is clear so that she doesn't trip and fall. She worries about her leaving the drawer to his bureau open. She's hoping that once her brain heals that she will have reassurance.
[2024-09-12] MEDS: Levothyroxine 88 MCG TAB PO (06:33)
[2024-09-12] MEDS: Escitalopram 10 MG TAB 5 MG PO (07:56)
[2024-09-12] MEDS: predniSONE 10 MG TAB 15 MG PO (07:57)
[2024-09-12] MEDS: Cholecalciferol (Vitamin D3) 400 UNIT TAB PO (07:57)
[2024-09-12] MEDS: QUEtiapine 25 MG TAB PO ×2 (07:57→15:47)
[2024-09-12] MEDS: Cyanocobalamin 500 MCG TAB 1000 MCG PO (07:57)
[2024-09-12 08:07] LABS: HCT 37.9 % (36.0-46.0); HGB 12.3 g/dL (11.2-15.7); MCH 27.8 pg (27.0-33.0); MCHC 32.5 % (32.0-36.0); MCV 86 fL (80-95); MPV 10.6 fL (8.0-11.0); RBC 4.42 10^6/uL (3.93-5.22); RDW 14.5 % (11.7-14.6); RDW-SD 45.3 fL; WBC 6.87 10^3/uL (4.4-10.8)
[2024-09-12 08:09] VITALS: BP 154/97; PULSE 87; RESP 16; TEMP 37.4; O2SAT 96
[2024-09-12 08:11] LABS: Platelet Count 50 10^3/uL (130-400)
[2024-09-12 08:25] LABS: ALT 10 U/L (14-59); AST 11 U/L (15-37); Alkaline Phosphatase 84 U/L (46-116); BUN 22 mg/dL (7-18); Bilirubin, Total 0.52 mg/dL (0.2-1.0); CREATININE 0.9 mg/dL (0.55-1.02); Calcium 8.7 mg/dL (8.5-10.1); Chloride 106 mmol/L (98-107); Estimated GFR 64.63 (mL/min/1.73m2); Glucose 128 mg/dL (74-106); Magnesium 2.1 mg/dL (1.8-2.4); Potassium 4.2 mmol/L (3.5-5.1); Sodium 141 mmol/L (136-145); Total Protein 5.6 g/dL (6.4-8.2)
--- NOTE | 2024-09-12 08:42 | NUR.NOTE ---
Nursing Note: Patient asked suicidal screening questions during morning assessment. Patient states that she is not suicidal and has no thoughts of harming herself. Patient reports that she wrote down something once after the holidays about not wanting to be alive and everyone took it too seriously. Patient states that we do not need to keep asking her these questions and that she has no intentions or thoughts of self-harm. Patient is pleasantly confused and easily redirected and follows commands. RN will continue to do suicide screening according to protocol. Patient resting calmly in bed eating breakfast with patient sitter present. No other concerns or needs at this time.
--- NOTE | 2024-09-12 09:01 | INITIAL_ITS ---
Date of service: 09/12/24 Time of Service: 09:01 Care Management Initial Assmt Initial Assessment Reason for Hospitalization: dementia Functional Status/Living Situation Patient Presentation: Estefany was sitting up in a chair by herself when CM met with her. CM had hoped to meet with her Adin, but he had already left for the day. Estefany was very pleasant in interaction and talked freely with CM. She seemed focused on the [employer] which, from her description, sounds like an EMS service. 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 She described it as a growth experience and was appreciative of the encouragement to pursue the course. It is not clear if all or any of the discussion was accurate as estefany is quite confused, however she sounded lucid during the conversation. CM followed up on the referrals sent to [facility] and [facility]. [facility] has no beds and stated they would review the referral and inform us if she would meet criteria. No call back was received today. CM left [address] [facility] and no return call was received from them either. Town of Residence: [place] Resides with: Spouse Significant Other/Family: Out of area (Daughter Harvey who is DPOA lives out of state) Employment Status: Retired Instrumental Activities of Daily Living (ADLs): Requires support Advance Directives Advance Directives: Do you have an Advance Directive: N 09/02/24 00:50 AD On File at [facility]: N 05/22/24 15:03 Date Asked 09/05/24 09/07/24 10:03 AD Date Reviewed COLST On File at [facility] COLST Date Scanned Code Status Resuscitation Status Full Code Portal Pt does not currently have a portal and education provided: No Portal Education: Other (patient has dementia) Insurance Coverage/Financial Issues Insurance: Medicare Care Team Visit Care Team Role Provider Type Coral Borrego MD Primary Care Provider NON-[facility] STAFF PHYSICIAN Linda García Other Providers RUNNING INSTRUCTOR Isabela Antonio Other Providers RUNNING INSTRUCTOR Cece Munoz Other Providers RUNNING INSTRUCTOR Chinmay Avalos Other Providers OTHER Yesica Hawkins RN Other Providers RUNNING INSTRUCTOR Lyn Sanchez Other Providers CERTIFIED PHLEBOTOMY TECHNICIAN Jose Anderson MD Emergency Provider [facility] STAFF PHYSICIAN Jona Simpson Admit Provider NON-[facility] STAFF PHYSICIAN Attending Provider Discharge Potential Discharge Needs: Other (will likely require placement) Anticipated Barriers to Discharge: None Identified, Bed availability and Other (dementia, no payer source) Transportation: Other (to be determined by disposition) Plan: Estefany's discharge plan is unclear at this time. She was brought to the hospital because her can no longer care for her. She did have care givers at home but her fired them all. Estefany also has a subdural hematoma which she has had since May from a fall. Re-imaging does seem to indicate it may be larger in size. Estefany was at [facility] with her last subdural hematoma however [facility] does not feel any interventions are warranted at this time. She had a PT evaluation in the ED which revealed that she is able to ambulate independently. She will likely need to transition to SB-2 if the family is unable or unwilling to take her home. CM will follow and continue to assess for discharge planning needs. PFSH All Active Problems (Updated 09/12/24 @ 06:06 by Jona Simpson) Subdural hematoma (Acute) Medical History Dementia Depressed mood Hx of small bowel obstruction Skin macule Acute skin disorder Suicidal thoughts Hx of adenomatous polyp of colon Retrograde amnesia Osteopenia Dysplasia of cervix GERD (gastroesophageal reflux disease) Essential hypertension Insomnia Anxiety Thrombocytopenia Immunosuppression Monoclonal gammopathy of unknown significance Type 2 diabetes mellitus Hypothyroidism Surgical History H/O local excision of skin lesion Family History Mother Diabetes LATE ONSET Father Prostate cancer Social History Smoking/Tobacco Use Status: Never Smoking risk assessment performed?: Yes Housing: house SDOH(Care Management) Screening Will the Patient Participate in the Screening?: Yes Do you worry about having a steady place to live?: no Problems where you live: no known problems In the past 12 months, have you had to go without electric, gas, oil or water in your home?: no Have you or anyone in your house had to go without enough food to eat?: no Has lack of transportation kept you from medical appointments or from doing things needed for daily living?: no Has anyone in your support network made you feel unsafe for any reason?: no
--- NOTE | 2024-09-12 11:23 | PHA.REVIEW2 ---
Pharmacy Admission Review Admission Clinical Review Admission Pharmacy Review: Subdural hematoma (Acute) No Known Allergies Allergy (Verified 04/30/24 09:32) Resuscitation Status Full Code Height 5 ft Weight 51.3 kg Comments Comments/Follow Ups: Per morning meeting - patient cleared by psych. Behavioral issues due to dementia, referrals sent for placement. Pharmacy Admission Review Renal Dosing Renal Dosing: BUN 22 mg/dL (7-18) H 09/12/24 07:56 Creatinine 0.9 mg/dL (0.55-1.02) 09/12/24 07:56 Medications needing adjustments: Reviewed (CrCl 36.3 mL/min, BUN decreased from 26) List of meds needing interventions: Current medications are okay Anticoagulation Anticoagulation: Hgb 12.3 g/dL (11.2-15.7) 09/12/24 07:56 Hct 37.9 % (36.0-46.0) 09/12/24 07:56 Plt Count 50 10^3/uL (130-400) L 09/12/24 07:56 Creatinine 0.9 mg/dL (0.55-1.02) 09/12/24 07:56 DVT Prophylaxis: Reviewed (TEDs - hematoma, PLT count decreased from 70) Relevant Labs Relevant Labs: Sodium 141 mmol/L (136-145) 09/12/24 07:56 Potassium 4.2 mmol/L (3.5-5.1) 09/12/24 07:56 Chloride 106 mmol/L (98-107) 09/12/24 07:56 Magnesium 2.1 mg/dL (1.8-2.4) 09/12/24 07:56 Electrolytes, C-Reactive P, ESR: Reviewed Cardiac Review Cardiac Review: Blood Pressure 154/97 0809 Blood Pressure 151/98 0107 Blood Pressure 151/98 0100 BP, HR, EF%: Reviewed QTc Review QTc: Reviewed (No EKG on file) IV to PO Switch IV Medications: Reviewed (No IV meds) Home Meds Home Med List reviewed: Reviewed Current Meds Current Medication Order Review: Reviewed Comments Comments/Follow Ups: Per morning meeting - patient cleared by psych. Behavioral issues due to dementia, referrals sent for placement.
--- NOTE | 2024-09-12 14:05 | PTTR_ITS ---
PT Notes Visit Reasons: Acute on subacute bilateral frontal subdural hemat Physical Therapy Inpatient Treatment Note Date: 09/12/2024 Precautions: Fall. Standard. Activity as tolerated. Subjective: Pleasant and cooperative. Sitter available this morning and this afternoon for safety. Objective: General Observation: Seated on a recliner. Mental Status: Alert and able to follow single/double step requests/commands Pain: None reported Vital Signs: Closely monitored by nursing staff Bed Mobility/Transfers: Minimal cueing provided for use of B hands as needed for support, movement sequence, AD management, and posture to reduce fall risk and minimize pain report Sit to stand supervision Stand to sit supervision Gait: 250 feet in the morning and another 250 feet in the afternoon with stand by assist using front-wheeled walker with minimal verbal cueing needed for directional changes only. No LOB. No SOB. Stairs: Up and down 6 x 4-inch steps and 4 x 6-inch steps while holding onto B rails for support with stand by assist while holding onto B rails, [id number] pattern. Balance: Static Sitting: Normal Dynamic Sitting: Normal Static Standing: Fair Dynamic Standing: Fair 4-stage Balance Test: Feet together 10 seconds Semi-tandem 10 seconds Full tandem <10 seconds One-legged stance <10 seconds Informed Consent/Education: Patient was instructed in purpose of PT consult. THERA EX: In the morning: Standing bilateral heel raises x 10 Stadning knee bedns x 10 Standing back kicks x 10 In the afternoon: Sit to stand at edge of treatment plinth x 10 Stepping exercises using 6-inch steps x 10 Assessment: More able to follow instructions than yesterday, also less distractible. Able to follow dual step commands/requests during mobility assessment. Patient requires the use of front-wheeled walker for all mobility ADL performance and stand by assist of another to maximize independence and reduce fall risk. No verbalizations of suicidal ideations during PT eval. Plan of Care/Treatment Plan: 1-2x/day, 7 days/week x 1 week. Plan of care has been reviewed with the SKATE SHOP ATTENDANT providing the service under Physical Therapy direction. Initiate Physical Therapy intervention for pain management as needed, strengthening, bed mobility, transfers, gait, stairs, balance training, and use of assistive device. DISCHARGE RECOMMENDATIONS: [] Home with no services [] [X] Home with services. Patient will benefit from home health PT services in order to progress mobility level using front-wheeled walker, assess home safety, identify additional equipment needs, and establish a functional maintenance program that will increase ability of patient to remain at home. [] Home with outpatient PT [] [] SNF for continued rehabilitation [] [] [facility] [] [] SNF versus LTC based on ability to participate and progress [] TREATMENT CODE/TIME: Session 1-- 24418 x 16 minutes for 1 unit, 95176 x 15 minutes for 1 unit (8:59- 9:30). Session 2-- 98881 x 12 minutes for 1 unit, 43721 x 11 minutes for 1 unit (14:05-14:28).
[2024-09-12 15:02] VITALS: BP 137/76; PULSE 77; RESP 15; TEMP 37; O2SAT 95
--- NOTE | 2024-09-12 15:18 | PGE_ITS ---
Date of Service Date of service: 09/12/24 Time of Service: 15:18 Assessment and Plan Assessment and plan (1) Subdural hematoma: Status: Acute Assessment and plan: stable (2) Dementia: Assessment and plan: Advanced with no specific medical therapy most likely vascular in nature with volume loss on CT scan of the brain. Did not appear to have strokes on CT scan. Patient is pending placement to a group home not able to safely be cared for by her at this time. Qualifiers: Dementia behavioral or psychological symptom: with psychotic disturbance Dementia severity: severe Dementia type: vascular dementia Qualified Code(s): F01.C2 - Vascular dementia, severe, with psychotic disturbance (3) Suicidal thoughts: Assessment and plan: no suicidal ideation but patient very tearful and crying all day. (4) Thrombocytopenia: Assessment and plan: Patient is chronically on prednisone with stable platelet count just below 70. Monitor lab and follow-up hematology as scheduled. (5) Type 2 diabetes mellitus: Assessment and plan: Patient is not on medical therapy with glucoses measured below 200 on most past labs. Monitor clinically on regular diet with patient having limits to nutrition with her dementia and most likely not able to follow a strict diabetic diet. 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 Follow-up lab routinely with PCP. Qualifiers: Hypothyroidism type: acquired Qualified Code(s): E03.9 - Hypothyroidism, unspecified Subjective Subjective Patient reports: no new complaints, tolerating liquids well, tolerating a regular diet and afebrile; denies shortness of breath Exam Const General: healthy appearing and comfortable Nutritional Appearance: average body habitus Orientation: alert, awake and oriented to person [facility] Head: normal to inspection, normocephalic and atraumatic Face and sinus: normal facial exam Mouth: oral mucosae normal Eyes General: appearance normal, both eyes and all related structures Psych Appearance: grossly normal Mental Status: other (crying) Speech and Movement: speech clear Mood: labile mood and other (crying) Affect: labile affect and sad Attitude: cooperative Insight: limited Judgment: limited Objective Last Vital Signs Temp 37.0 C 09/12/24 15:02 Pulse 77 09/12/24 15:02 Resp 15 09/12/24 15:02 BP 137/76 09/12/24 15:02 Pulse Ox 95 09/12/24 15:02 Laboratory Results - last 24 hr 09/12/24 07:56 WBC 6.87 RBC 4.42 Hgb 12.3 Hct 37.9 MCV 86 MCH 27.8 MCHC 32.5 RDW 14.5 Plt Count 50 L MPV 10.6 Sodium 141 Potassium 4.2 Chloride 106 Carbon Dioxide 29.0 Anion Gap 6.0 BUN 22 H Creatinine 0.9 Est GFR (CKD-EPI 2020) 64.63 Glucose 128 H Calcium 8.7 Magnesium 2.1 Total Bilirubin 0.52 AST 11 L ALT 10 L Alkaline Phosphatase 84 Total Protein 5.6 L Albumin 3.0 L Time Spent with Patient Time Spent with Patient: 35-49 minutes Time was spent: preparing to see the patient(eg.review tests), obtaining and/or reviewing separately otained hiistory, ordering medications,tests, procedures, indepentently interpreting results and counseling the patient
[2024-09-12] MEDS: QUEtiapine 25 MG TAB 50 MG PO (19:57)
[2024-09-12] MEDS: Melatonin 3 MG TAB 9 MG PO (19:57)
[2024-09-13] MEDS: Levothyroxine 88 MCG TAB PO (05:55)
[2024-09-13] MEDS: QUEtiapine 25 MG TAB PO (05:56)
[2024-09-13 07:34] VITALS: BP 127/73; PULSE 65; RESP 15; TEMP 36.6; O2SAT 97
--- NOTE | 2024-09-13 07:42 | PT.INTREAT ---
PT Notes Visit Reasons: Acute on subacute bilateral frontal subdural hemat Physical Therapy Inpatient Treatment Note Date: 09/13/2024 Precautions: Fall. Standard. Activity as tolerated. Subjective: Pleasant and cooperative. Yannick discharged as of 09/13/2024. Verbalized her worry that she may be a disappointment to her . in the afternoon said that he is okay with taking care of his and doing whatever needed to be done in the house, what frustrates him is that her anxiety can go over board sometimes and he does not know what to do. Hopeful that her medications can be better managed so that her anxiety can stay manageable. Objective: General Observation: Seated on a recliner. Mental Status: Alert and able to follow single/double step requests/commands Pain: None reported Vital Signs: Closely monitored by nursing staff Bed Mobility/Transfers: Minimal cueing provided for use of B hands as needed for support, movement sequence, AD management, and posture to reduce fall risk and minimize pain report Sit to stand supervision Stand to sit supervision Gait: 350 feet in the morning and another 700 feet in the afternoon with stand by assist using front-wheeled walker with minimal verbal cueing needed for directional changes only. No LOB. No SOB. Stairs: Up and down 6 x 4-inch steps and 4 x 6-inch steps while holding onto B rails for support with stand by assist while holding onto B rails, [id number] pattern. Balance: Static Sitting: Normal Dynamic Sitting: Normal Static Standing: Fair Dynamic Standing: Fair THERA EX: Standing bilateral heel raises x 10 Stadning knee bedns x 10 Standing back kicks x 10 Sit to stand at edge of treatment plinth x 10 Assessment: Improving overall in terms of activity tolerance and mental clarity whic has allowed improved ability to follow and participate in therapy. Able to follow dual step commands/requests during mobility assessment. Patient requires the use of front-wheeled walker for all mobility ADL performance and stand by assist of another to maximize independence and reduce fall risk. No verbalizations of suicidal ideations since day of evaluation. Plan of Care/Treatment Plan: 1-2x/day, 7 days/week x 1 week. Plan of care has been reviewed with the SHEET ROCK LAYER providing the service under Physical Therapy direction. Initiate Physical Therapy intervention for pain management as needed, strengthening, bed mobility, transfers, gait, stairs, balance training, and use of assistive device. DISCHARGE RECOMMENDATIONS: [] Home with no services [] [X] Home with services. Patient will benefit from home health PT services in order to progress mobility level using front-wheeled walker, assess home safety, identify additional equipment needs, and establish a functional maintenance program that will increase ability of patient to remain at home. [] Home with outpatient PT [] [] SNF for continued rehabilitation [] [] [facility] [] [] SNF versus LTC based on ability to participate and progress [] TREATMENT CODE/TIME: Session 1-- 28614 x 15 minutes for 1 unit, 86741 x 13 minutes for 1 unit (7:42-8:10). Session 2-- [id number] x 20 minutes for 1 unit (13:10-13:30).
[2024-09-13] MEDS: Cholecalciferol (Vitamin D3) 400 UNIT TAB PO (08:07)
[2024-09-13] MEDS: QUEtiapine 25 MG TAB 50 MG PO ×2 (08:07→17:04)
[2024-09-13] MEDS: Cyanocobalamin 500 MCG TAB 1000 MCG PO (08:08)
[2024-09-13] MEDS: Escitalopram 10 MG TAB 5 MG PO (08:08)
[2024-09-13] MEDS: predniSONE 10 MG TAB 15 MG PO (08:08)
[2024-09-13 14:53] VITALS: BP 122/69; PULSE 83; RESP 15; TEMP 36.2; O2SAT 95
--- NOTE | 2024-09-13 16:04 | PSYCO_ITS ---
Date of service: 09/13/24 Time of Service: 16:05 Summary Note Name: Estefany Caballero?: 1945 Date?and?Time: 09/13/2024 3:29:48 PM Location of the patient: [facility] IP?Location of the doctor: [facility] Length of consult: 45 min This evaluation was conducted via video telepsychiatry with the assistance of onsite staff Reason for consult: follow up visit Requested by: Anne Garrett NP History of Present Illness: 79 y/o female, lives with , h/o dementia and depression, currently admitted to the medical floor for SI with plan for transfer to [facility] - geriatric psych unit. Psychiatry was consulted regarding possible medication changes. Patient was receiving quetiapine 25mg bid at home which was increased to 50mg bid in the hospital and she has continued on escitalopram 5mg daily. In the hospital patient has had some agitation at night and remains severely depressed and perseverates on feeling she is a burden on her family. Patient is tearful throughout the exam and is unable to be reassure d. Spoke with daughter who reports this has been ongoing and progressing over the past year. Reports patient had no prior h/o depression and was very outgoing and happy before this began. Suggested the family discuss ECT as an option with [facility]. Collateral Contacted: Yes?Collateral name:Pola?Collateral phone number:? [phone] (no answer) / [phone]?Collateral relationship to the patient:? / daughter Medications & Freq: psych meds: quetiapine 50mg bid, escitalopram 5mg daily Mental Status Exam: Appearance and Attire:?sitting up in chair Psychomotor agitation:?No abnormality Attitude and behavior:?Cooperative, tearful Speech:?No abnormality, Mood:?Depressed, hopeless Affect:?Labile, Congruent Thought process:?Coherent Thought content:?Suicidal ideation, No homicidal ideation, Paranoia, Delusions, Worthlessness Perception:?No auditory hallucinations, No visual hallucinations Intel:?Average Abstract:?Perseverative, Poor reasoning Language:?not assessed Orientation:?Oriented to person, Disoriented to place, Disoriented to time, Disoriented to situation Sense:?Distractible Knowledge:?Moderate impairment Memory:?Impaired to Executive function Insight:?Lack of awareness of problems, Severe impairment Judgement:?Severe impairment, Impaired in response and decision making, Impaired in responses to current situation and behavior Gait:?not assessed Impression/Risk Assessment: Current Suicide Risk Elevated??Yes ? Current Violence Risk Elevated??Yes ? Issues with ability to care for self??Yes ? Summary: 79 y/o female, lives with , h/o dementia and depression, currently admitted to the medical floor for SI with plan for transfer to [facility] geriatric psych unit. Patient's depression is severe and debilitating and not responding to outpatient treatment. Patient is appropriate for inpatient psych admission for depression and may also benefit from treatment for agitation associated with dementia. Patient may benefit of ECT if available. Diagnosis: F03.91 Unspecified dementia with behavioral disturbance, F32.2 Major depressive disorder, single episode, severe without psychotic features CPT Codes: 77825 ? High Complexity Follow-up (OP/ED) - 40-54 min Treatment Plan:? General: transfer to [facility] tomorrow ? Level of Care: inpatient psych ? Psychiatric Clearance: No? Observation level ? 1:1 needed?: No ? Pharmacological: continue quetiapine 50mg bid, escitalopram 5mg daily ? Patient psychotic?No ? Therapy: supportive ? Follow up needed while in the hospital?: Yes?Follow up Frequency:?As Needed ? Discussed plan with onsite executive officer special warfare team: Yes Who Anne Garrett NP ?
--- NOTE | 2024-09-13 16:36 | CMPROGNOTE_ITS ---
Date of service: 09/13/24 Time of Service: 16:36 Care Management Progress Note Progress Note Text Progress Note Text: Estefany was meeting with the tele psychiatrist when CM attempted to meet with her; her RN was in the room supporting her. CM spoke to admissions at [facility], who agreed to accept Estefany tomorrow. CM contacted her daughter, Alyce, who also spoke to admissions at [facility], and is very grateful for her mother receiving the help and support that she needs. CM discussed Estefany's discharge plan with Alyce, including the plan once Estefany is cleared for discharge from [facility]; [facility] will take Estefany back on [facility] if necessary. Alyce stated that the plan will be to get Estefany home with more support vs rehab at [facility]. Alyce stated that she sent a referral to [place], but she is hopeful that her mother will be able to return home after stabilization at [facility]. CM will continue to follow. Discharge Potential Discharge Needs: Other ([facility]) Anticipated Barriers to Discharge: Bed availability Patient/Family Education Needs: Review discharge instructions, discuss [facility] Transportation: EMS Plan: Estefany will transfer to [facility] on Tuesday and will transport via EMS due to her dementia. She will follow up with her community providers and her discharge plan of care. Alyce will be supporting her mother with discharge planning considerations while she is at [facility]. CM will continue to follow. SDOH(Care Management) Screening Will the Patient Participate in the Screening?: Yes Do you worry about having a steady place to live?: no Problems where you live: no known problems In the past 12 months, have you had to go without electric, gas, oil or water in your home?: no Have you or anyone in your house had to go without enough food to eat?: no Has lack of transportation kept you from medical appointments or from doing things needed for daily living?: no Has anyone in your support network made you feel unsafe for any reason?: no
--- NOTE | 2024-09-13 17:44 | PGE_ITS ---
Date of Service Date of service: 09/13/24 Time of Service: 13:00 Assessment and Plan Assessment and plan (1) Subdural hematoma: Status: Acute Assessment and plan: Sustained back in May -stable on arrival (2) Dementia: Assessment and plan: Advanced dementia most likely vascular in nature with volume loss on CT scan of the brain; on no specific medical therapy No strokes on CT scan. Delirium can occur in the setting of hospitalization Qualifiers: Dementia type: vascular dementia Dementia severity: severe Dementia behavioral or psychological symptom: with psychotic disturbance Qualified Code(s): F01.C2 - Vascular dementia, severe, with psychotic disturbance (3) Delirium: Status: Acute Assessment and plan: As above Was on Seroquel at home PRN and scheduled but only administered as per order as per report Now on Schedule seroquel , initially at home dosing but d/t previous episode of delirium overnight , dosing was increased to 50 mg BID And as below in point 3 (4) Suicidal thoughts: Assessment and plan: no suicidal ideation verbalized but patient very tearful and crying all day. Psych consult completed: Dr. Bowers does not recommend any further change in medicined as the patient will go to [facility] on 09/14/24 Will continue Seroquel as above (5) Thrombocytopenia: Assessment and plan: Was on prednisone for ITP and will contiue home dose of prednisone Monitor lab and follow-up hematology as scheduled. (6) Type 2 diabetes mellitus: Assessment and plan: las t A1C at 6.3 in 03/2024; not currently on medical therapy ; glucoses measured below 128-180 on BMP . Monitor clinically and continue regular diet with patient having limits to nutrition in the setting of dementia will most likely not be an achievable goal Qualifiers: Diabetes mellitus roasterman insulin use: without roasterman use Diabetes mellitus complication status: without complication Qualified Code(s): E11.9 - Type 2 diabetes mellitus without complications (7) Hypothyroidism: Assessment and plan: Continue home dose levothryroxine Discussed with Dr. Hartman Qualifiers: Hypothyroidism type: acquired Qualified Code(s): E03.9 - Hypothyroidism, unspecified Subjective Subjective Patient reports: tolerating liquids well, tolerating a regular diet, voiding w/o difficulty, no bowel movement and other (crying, stating that she misses her and that she does not want to force him to be dragging her- he could find someone else. ); denies diarrhea, nausea, vomiting, shortness of breath or fever Exam Const General: healthy appearing and comfortable Nutritional Appearance: average body habitus Orientation: alert, awake, oriented to person and oriented to place [facility] Head: normal to inspection, normocephalic and atraumatic Face and sinus: normal facial exam Mouth: lip normal Eyes General: appearance normal, both eyes and all related structures Neck Neck: normal visual inspection, full ROM, no lymphadenopathy and no meningeal signs Resp Effort & Inspection: normal respiratory effort, able to speak in complete sentences, no cough and not labored Auscultation: clear to auscultation bilaterally Cardio Jugular venous pressure: no JVD Rate: regular rate Rhythm: regular rhythm Heart Sounds: S1 normal, S2 normal and no murmurs Pulses: radial pulses present bilaterally and dorsalis pedis present bilaterally GI Inspection: normal to inspection and non-distended Palpation: soft Auscultation: normal bowel sounds General: No CVA tenderness Skin Lesions: lesion noted (left lower leg ) Neuro General: patient alert, patient awake and oriented Patient Orientation: Person and Place Speech: speech normal Sensory Exam: no sensory deficits noted Extrem General: normal to inspection, full ROM and clubbing, cyanosis or edema noted Right upper extremity: normal to inspection Left upper extremity: normal to inspection Right lower extremity: normal to inspection Left lower extremity: normal to inspection Psych Appearance: grossly normal Mental Status: other (crying) Speech and Movement: speech clear Mood: labile mood and other (crying) Affect: labile affect and sad Attitude: cooperative Insight: limited Judgment: limited Objective Last Vital Signs Temp 36.2 C L 09/13/24 14:53 Pulse 83 09/13/24 14:53 Resp 15 09/13/24 14:53 BP 122/69 09/13/24 14:53 Pulse Ox 95 09/13/24 14:53 Time Spent with Patient Time Spent with Patient: >50 minutes Time was spent: preparing to see the patient(eg.review tests), obtaining and/or reviewing separately otained hiistory, ordering medications,tests, procedures, referring, communicating with other health clinical care leader, indepentently interpreting results, counseling the patient and care coordination
[2024-09-13 20:00] VITALS: BP 150/69; PULSE 85; RESP 16; TEMP 37; O2SAT 96
[2024-09-13] MEDS: Melatonin 3 MG TAB 9 MG PO (21:01)
[2024-09-13] MEDS: Haloperidol 5 MG/ML VIAL 2 MG IM/IV (21:55)
[2024-09-13 23:09] LABS: Source Nasal/Nares
[2024-09-13 23:51] LABS: COVID-19 PCR Negative (Negative)
[2024-09-14] MEDS: Levothyroxine 88 MCG TAB PO (05:37)
[2024-09-14 07:53] VITALS: BP 140/86; PULSE 82; RESP 15; TEMP 36.9; O2SAT 96
[2024-09-14] MEDS: Escitalopram 10 MG TAB 5 MG PO (09:00)
[2024-09-14] MEDS: predniSONE 10 MG TAB 15 MG PO (09:00)
[2024-09-14] MEDS: Cholecalciferol (Vitamin D3) 400 UNIT TAB PO (09:01)
[2024-09-14] MEDS: QUEtiapine 25 MG TAB 50 MG PO (09:02)
[2024-09-14] MEDS: Cyanocobalamin 500 MCG TAB 1000 MCG PO (09:02)
[2024-09-14] MEDS: Lidocaine 5% Patch 1 PATCH TD (09:03)
--- NOTE | 2024-09-14 09:25 | W.PM.DS.N ---
Date of service: 09/14/24 Time of Service: 09:25 DS: Diagnosis Discharge Diagnosis (1) Subdural hematoma: Status: Acute (2) Dementia: (3) Delirium: Status: Acute (4) Suicidal thoughts: (5) Thrombocytopenia: (6) Type 2 diabetes mellitus: (7) Hypothyroidism: Discharge Plan Disposition Patient Disposition: [facility]NF) Condition: Stable Condition: Improving Discharge Details Reason For Visit: Acute on subacute bilateral frontal subdural hemat Admit Date/Time: 09/12/24 00:08 Admit Provider: Jona Simpson Attending Provider: Jona Simpson Primary Care Provider: Coral Borrego [facility] Course Hospital Course: This is an 79-year-old female patient who has been in the ED for evaluation for placement and safety having advanced dementia and not able to be with her and daughter at home. She lives with her whom she has been since being juniors in high school and her daughter is involved in patient care but not living with her according to the patient. She has had a known fall tripping down some stairs in the recent past and is on chronic prednisone for thrombocytopenia which is stable with a platelet count just under 70. It was eventually evaluated at [facility] for large but stable subdural hematoma over her right frontal area and a smaller subdural hematoma over her left frontal area with some effacement of the right lateral ventricle and left with deviation of the midline measuring 5 mm at the level of the septum pellucidum. The patient has displayed an escalating behavior recently and was evaluated for suicidal ideation at another institution's ED with psychiatry just prior to presenting to this ED for evaluation for safety with decompensated dementia. Because of her change in mental status she had a repeat CT which did show slight enlargement of her chronic subdural but this was not significant for neurosurgical intervention according to [facility]. Repeat CT of the head 6 hours after the first was stable and patient will now be admitted to observation requiring adjustment of medical therapy. The subdural hematoma will need neurology follow-up outpatient at [facility]. The patient has a history of ITP for which she is on long-term steroid therapy and on Bactrim. This will need follow-up outpatient and reordering of those medicine as per the outpatient medical provider. Past medical history also includes small bowel obstruction, adenomatous polyp of the colon, dysplasia of the cervix, gastric esophageal reflux disease and essential hypertension. The patient has a history of diabetes with her last A1c at 6.3 on 04/12/2024, but during the stay blood sugars were between 128 and 180 without any pharmacological therapy while on a regular diet while on oral prednisone. The patient was intermittently becoming violent at bedtime and a danger to herself with high risk for repeated fall and physical harm to the caring staff. She received Seroquel orally and melatonin which was a plan for home treatment and the patient intermittently was somewhat responsive to this therapy; subsequent dosing was increased. She was admitted for continued adjustment of medical therapy with one-on-one care. The patient continued to exhibit sadness and ongoing crying stating that she felt like a burden for her spouse without any further mention of suicidal ideation. A tele- psych consult was obtained on 09/13/[address] Christophe Bowers not to modify her medicine regimen in the setting of transfer to [facility] facility. This morning the patient feels better, reports less sadness and is not tearful. The patient understands that she will be discharged to [facility] today where her medical therapy will be adjusted and then return home. Discussed with Dr. Ochoa Home Meds and New Rx's Prescriptions: New quetiapine 25 mg Tablet 25 mg PO DAILY PRN PRN (Reason: Agitation) Qty: 30 0RF quetiapine 25 mg Tablet 50 mg PO BID@0800,1800 Qty: 60 0RF sulfamethoxazole-trimethoprim 400-80 mg Tablet 1 tab PO MOWEFR Qty: 3 0RF Rx Instructions: Further therapy as per outpatient provider polyethylene glycol 3350 17 gram Powder In Packet 17 g PO DAILY PRN PRN (Reason: Constipation) Qty: 30 0RF Continued cyanocobalamin (vitamin B-12) 1,000 mcg capsule 1,000 mcg PO DAILY escitalopram oxalate 5 mg tablet 5 mg PO DAILY prednisone 10 mg tablet 15 mg PO DAILY cholecalciferol (vitamin D3) 10 mcg (400 unit) capsule 10 mcg PO DAILY levothyroxine 88 mcg tablet 88 mcg PO DAILY Patient Comments: TAKE 1 TABLET BY MOUTH ONCE DAILY lidocaine 4 % adhesive patch,medicated 1 patch topical DAILY Rx Instructions: to coccyx, may leave on for up to 12 hrs, remove old patch melatonin 10 mg tablet 10 mg PO HS Discontinued quetiapine 25 mg tablet 25 mg PO BID Patient Comments: Per daughter, pts giving it to her when he feels it is necessary- family wants to determine which times are most appropriate to get them on a consistent schedule Rx Instructions: Per daughter- give BID and can give 1 extra dose PRN is needed sulfamethoxazole-trimethoprim 400-80 mg tablet 1 tab PO DAILY Patient Comments: TAKE 1 TABLET BY MOUTH THREE TIMES A WEEK MONDAYS, WEDNESDAYS, AND FRIDAYS Rx Instructions: THREE TIMES A WEEK, TUE-TUE-TUE Discharge Instructions Stand Alone Forms: Nursing Discharge Form Referrals: Coral Borrego MD [Primary Care Provider] - 09/18/24 10:10 am Activity:: Activity as Tolerated Equipment/Supplies:: Walker Diet:: As Tolerated Discharge Orders Discharge Orders: Discharge Order (Routine); Ordered 09/14/24 Ordered By: Saadia Garrett DS: Summary Time Spent with Patient providing and/or coordinating discharge services: Greater than 30 minutes Status at Discharge Functional status at discharge: uses cane/walker Overall status at discharge: patient is progressing back to baseline Mental Status: other (crying) Speech and Movement: speech clear Mood: labile mood and other (crying) Affect: labile affect and sad Quality:SDOH Health Related Social Needs: No Data to Display Exam Const General: healthy appearing and comfortable Nutritional Appearance: average body habitus Orientation: alert, awake, oriented to person and oriented to place [facility] Head: normal to inspection, normocephalic and atraumatic Face and sinus: normal facial exam Mouth: lip normal Eyes General: appearance normal, both eyes and all related structures Neck Neck: normal visual inspection, full ROM, no lymphadenopathy and no meningeal signs Resp Effort & Inspection: normal respiratory effort, able to speak in complete sentences, no cough and not labored Auscultation: clear to auscultation bilaterally Cardio Jugular venous pressure: no JVD Rate: regular rate Rhythm: regular rhythm Heart Sounds: S1 normal, S2 normal and no murmurs Pulses: radial pulses present bilaterally and dorsalis pedis present bilaterally GI Inspection: normal to inspection and non-distended Palpation: soft Auscultation: normal bowel sounds General: No CVA tenderness Skin Lesions: lesion noted (left lower leg ) Neuro General: patient alert, patient awake and oriented Patient Orientation: Person and Place Speech: speech normal Sensory Exam: no sensory deficits noted Extrem General: normal to inspection, full ROM and clubbing, cyanosis or edema noted Right upper extremity: normal to inspection Left upper extremity: normal to inspection Right lower extremity: normal to inspection Left lower extremity: normal to inspection Psych Appearance: grossly normal Mental Status: other (crying) Speech and Movement: speech clear Mood: labile mood and other (crying) Affect: labile affect and sad Attitude: cooperative Insight: limited Judgment: limited DS: Data Vitals/I&O Vitals and I&O: Vital Signs Temperature 36.9 C 09/14/24 07:53 Temperature Source Temporal Artery Scan 09/14/24 07:53 Pulse 82 09/14/24 07:53 Pulse Rhythm Regular 09/12/24 01:07 Respiratory Rate 15 09/14/24 07:53 Respiratory Effort Normal, Non-Labored 09/12/24 01:07 Respiratory Depth Normal 09/12/24 01:07 Respiratory Pattern Normal 09/12/24 01:07 Blood Pressure 140/86 09/14/24 07:53 Blood Pressure Position Sitting 09/10/24 18:37 Pulse Oximetry 96 09/14/24 07:53 Oxygen Delivery Method Room Air 09/14/24 07:53 Oxygen Flow Rate 0 09/14/24 07:53 Pain Level 0 09/14/24 07:53 Comment RN notified and present during vital signs 09/12/24 01:00 Intake & Output 09/13/24 09/13/24 09/14/24 11:59 23:59 11:59 Intake Total 250 / 250 Output Total 200 / 200 700 / 700 Balance 250 / 50 -200 / 50 -700 / -700 Weight 184.1 kg Intake: Oral 250 / 250 Output: Urine 200 / 200 700 / 700 Other: Urine Color Yellow Yellow Straw Urine Appearance Cloudy Comment voided in toilet voided in toilet Stool Characteristics Soft Brown Voiding Methods Diaper Toilet Incontinent Data Completed and Pending Labs on day of discharge: Labs from last 24 hours 09/13/24 16:47 COVID-19 Source Nasal/Nares SARS-CoV-2 (PCR) Negative PFSH All Active Problems (Updated 09/13/24 @ 18:03 by Saadia Garrett APRN) Delirium (Acute) Subdural hematoma (Acute) Medical History Dementia Depressed mood Hx of small bowel obstruction Skin macule Acute skin disorder Suicidal thoughts Hx of adenomatous polyp of colon Retrograde amnesia Osteopenia Dysplasia of cervix GERD (gastroesophageal reflux disease) Essential hypertension Insomnia Anxiety Thrombocytopenia Immunosuppression Monoclonal gammopathy of unknown significance Type 2 diabetes mellitus Hypothyroidism Surgical History H/O local excision of skin lesion Family History Mother Diabetes LATE ONSET Father Prostate cancer Social History Smoking/Tobacco Use Status: Never Smoking risk assessment performed?: Yes Housing: house Time Spent with Patient Time Spent with Patient: 45-69 minutes Time was spent: preparing to see the patient(eg.review tests), obtaining and/or reviewing separately otained hiistory, ordering medications,tests, procedures, referring, communicating with other health customer care representative, indepentently interpreting results, counseling the patient and care coordination
--- NOTE | 2024-09-14 09:56 | PDOC.CMDIS ---
Date of service: 09/14/24 Time of Service: 09:56 LACE Index Scoring Tool Questions: Length of Stay (in days): 2 Was the patient admitted via the E.D.?: Yes Comorbidities: Diabetes w/o Complication and Dementia E.D. Visits: 1 Answers: Total Score: 11 Risk of Readmission: High Risk Care Management Discharge Plan Reason for Hospitalization: subdural hematoma Discharge Plan: Estefany quiroz Patient/Family Education Needs: review of discharge instructions, limitations, follow up plan, discuss Ask Me Three Services Needed at Discharge: Psychiatric Facility SDOH Health Related Social Needs: No Data to Display Disposition Disposition: Other ([facility]) Transport via of: EMS
== END 2024-09-14 11:09 | disposition skilled nursing facility (03) ==
LOC: ER 09-12 00:27 → MS 09-12 00:54
PROVIDERS: Emergency Medicine; Nurse Practitioner Acute Care; Admitting Provider Family Medicine; Emergency Provider Emergency Medicine; PCP Family Medicine; Visit Provider Family Medicine
DX: S06.5XAA Traumatic subdural hemorrhage with loss of consciousness status unknown, initial encounter (principal); F01.C2 Vascular dementia, severe, with psychotic disturbance; R45.851 Suicidal ideations; F05 Delirium due to known physiological condition; E11.9 Type 2 diabetes mellitus without complications; D69.6 Thrombocytopenia, unspecified; E03.9 Hypothyroidism, unspecified; R29.6 Repeated falls; Z79.52 Long term (current) use of systemic steroids; Z79.899 Other long term (current) drug therapy; M85.80 Other specified disorders of bone density and structure, unspecified site; D47.2 Monoclonal gammopathy; I10 Essential (primary) hypertension; F41.9 Anxiety disorder, unspecified; G47.00 Insomnia, unspecified; K21.9 Gastro-esophageal reflux disease without esophagitis; R41.2 Retrograde amnesia; F32.A Depression, unspecified; D84.821 Immunodeficiency due to drugs; W19.XXXA Unspecified fall, initial encounter
CPT/HCPCS: 00123; 36415; 80053; 80307; 85027; 87635; 96374; 97110; 97162; 97530; 99285; 70450; 80320; 80329; 81003; 83735; 84443; 85025; 99223; 99232; 99233; 99239; G0378; J1630; J3490; J7512

== ENCOUNTER 2024-10-26 01:11 | Outpatient (RCR) | payer MEDICARE, SELFPAY ==
[2024-10-26 12:01] LABS: Abs Immature Grans 0.21 10^3/uL (0.0-0.06); Absolute Basophil Count 0.06 10^3/uL (0.0-0.2); Absolute Lymphocyte Count 1.44 10^3/uL (1.2-3.4); Absolute Monocyte Count 0.37 10^3/uL (0.1-0.8); Basophils % 0.5 %; Eosinophils % 0.2 %; HCT 41.6 % (36.0-46.0); HGB 13.1 g/dL (11.2-15.7); Immature Grans % 1.7 %; Lymphocytes % 11.3 %; MCH 28.4 pg (27.0-33.0); MCHC 31.5 % (32.0-36.0); MCV 90 fL (80-95); MPV 10.7 fL (8.0-11.0); Monocytes % 2.9 %; Neutrophils % 83.4 %; RBC 4.62 10^6/uL (3.93-5.22); RDW-SD 42.5 fL; WBC 12.72 10^3/uL (4.4-10.8)
[2024-10-26 12:10] LABS: Absolute Eosinophil Count 0.03 10^3/uL (0.0-0.7); Absolute Neutrophil Count 10.61 10^3/uL (1.2-6.7)
[2024-10-26 12:11] LABS: Platelet Count 96 10^3/uL (130-400)
== END 2024-10-27 23:59 | disposition home or self-care (01) ==
LOC: INF 01:11
PROVIDERS: Internal Medicine; PCP Family Medicine; Visit Provider Family Medicine
DX: D69.6 Thrombocytopenia, unspecified (principal)
CPT/HCPCS: 36415; 96372; 85025; J2796

== ENCOUNTER 2024-11-02 00:37 | Outpatient (RCR) | payer MEDICARE, SELFPAY ==
[2024-11-02 11:55] LABS: Abs Immature Grans 0.27 10^3/uL (0.0-0.06); Absolute Basophil Count 0.07 10^3/uL (0.0-0.2); Absolute Eosinophil Count 0.01 10^3/uL (0.0-0.7); Absolute Lymphocyte Count 1.39 10^3/uL (1.2-3.4); Absolute Monocyte Count 0.25 10^3/uL (0.1-0.8); Absolute Neutrophil Count 11.67 10^3/uL (1.2-6.7); Basophils % 0.5 %; Eosinophils % 0.1 %; HCT 44.4 % (36.0-46.0); HGB 13.8 g/dL (11.2-15.7); Lymphocytes % 10.2 %; MCH 27.6 pg (27.0-33.0); MCHC 31.1 % (32.0-36.0); MCV 89 fL (80-95); MPV 11.1 fL (8.0-11.0); Monocytes % 1.8 %; Neutrophils % 85.4 %; Platelet Count 106 10^3/uL (130-400); RDW 12.9 % (11.7-14.6); RDW-SD 41.9 fL; WBC 13.67 10^3/uL (4.4-10.8)
== END 2024-11-27 23:59 | disposition home or self-care (01) ==
LOC: INF 00:37
PROVIDERS: Internal Medicine; PCP Family Medicine; Visit Provider Family Medicine
DX: D69.6 Thrombocytopenia, unspecified (principal)
CPT/HCPCS: 36415; 96372; 85025; J2796